=== PATIENT | female | born 1955 | race Caucasian/White ===

== ENCOUNTER → 2020-01-23 08:53 | Outpatient (BNVA) | payer MEDICARE, OTHER, SELFPAY | PROVIDERS: Family Provider Electrodiagnostic Medicine; PCP Family Medicine; Visit Provider Social Worker | DX: F33.0 Major depressive disorder, recurrent, mild (principal); F41.1 Generalized anxiety disorder | CPT/HCPCS: 90834 ==

== ENCOUNTER → 2020-02-12 12:49 | Outpatient (BNVA) | payer MEDICARE, OTHER, SELFPAY | PROVIDERS: Family Provider Electrodiagnostic Medicine; PCP Family Medicine; Visit Provider Psychiatry & Neurology Psychiatry | DX: F33.0 Major depressive disorder, recurrent, mild (principal); F41.1 Generalized anxiety disorder | CPT/HCPCS: 99213 ==

== ENCOUNTER → 2020-02-13 15:51 | Outpatient (BNVA) | payer MEDICARE, OTHER, SELFPAY | PROVIDERS: Family Provider Electrodiagnostic Medicine; PCP Family Medicine; Visit Provider Social Worker | DX: F41.1 Generalized anxiety disorder (principal); F33.0 Major depressive disorder, recurrent, mild | CPT/HCPCS: 90834 ==

== ENCOUNTER → 2020-04-02 08:29 | Outpatient (BNVA) | payer MEDICARE, OTHER, SELFPAY | PROVIDERS: Family Provider Electrodiagnostic Medicine; PCP Family Medicine; Visit Provider Social Worker | DX: F41.1 Generalized anxiety disorder (principal); F33.0 Major depressive disorder, recurrent, mild | CPT/HCPCS: 90834 ==

== ENCOUNTER → 2020-04-15 08:33 | Outpatient (BNVA) | payer MEDICARE, OTHER, SELFPAY | PROVIDERS: Family Provider Electrodiagnostic Medicine; PCP Family Medicine; Visit Provider Psychiatry & Neurology Psychiatry | DX: F41.1 Generalized anxiety disorder (principal); F33.0 Major depressive disorder, recurrent, mild | CPT/HCPCS: 99213 ==

== ENCOUNTER → 2020-04-23 08:37 | Outpatient (BNVA) | payer MEDICARE, OTHER, SELFPAY | PROVIDERS: Family Provider Electrodiagnostic Medicine; PCP Family Medicine; Visit Provider Social Worker | DX: F41.1 Generalized anxiety disorder (principal); F33.0 Major depressive disorder, recurrent, mild | CPT/HCPCS: 90834 ==

== ENCOUNTER → 2020-07-17 08:54 | Outpatient (BNVA) | payer MEDICARE, OTHER, SELFPAY | PROVIDERS: Family Provider Electrodiagnostic Medicine; PCP Family Medicine; Visit Provider Psychiatry & Neurology Psychiatry | DX: F41.1 Generalized anxiety disorder (principal); F33.0 Major depressive disorder, recurrent, mild | CPT/HCPCS: 99213 ==

== ENCOUNTER → 2020-09-17 08:45 | Outpatient (BNVA) | payer MEDICARE, OTHER, SELFPAY | PROVIDERS: Family Provider Electrodiagnostic Medicine; PCP Family Medicine; Visit Provider Psychiatry & Neurology Psychiatry | DX: F41.1 Generalized anxiety disorder (principal); F33.0 Major depressive disorder, recurrent, mild | CPT/HCPCS: 99213 ==

== ENCOUNTER → 2020-11-20 08:28 | Outpatient (BNVA) | payer MEDICARE, OTHER, SELFPAY | PROVIDERS: Family Provider Electrodiagnostic Medicine; PCP Family Medicine; Visit Provider Psychiatry & Neurology Psychiatry | DX: F41.1 Generalized anxiety disorder (principal); F33.0 Major depressive disorder, recurrent, mild | CPT/HCPCS: 99213 ==

== ENCOUNTER → 2020-12-13 17:07 | Outpatient (BNVA) | payer MEDICARE, OTHER, SELFPAY | PROVIDERS: Family Provider Electrodiagnostic Medicine; PCP Family Medicine; Visit Provider Emergency Medicine | DX: Z20.828 Contact with and (suspected) exposure to other viral communicable diseases (principal) | CPT/HCPCS: 87635 ==

== ENCOUNTER 2021-01-12 14:26 | Outpatient (CLI) | payer MEDICARE, OTHER, SELFPAY ==
--- NOTE | 2021-01-12 14:34 | MM_ITS ---
WS: [id number] BILATERAL SCREENING DIGITAL MAMMOGRAM WITH CAD HISTORY: SCREENING COMPARISON: 01/16/2013 Bilateral CC and MLO views submitted. Computer aided detection analyzed. Breast composition: The breasts are heterogeneously dense, which may obscure small masses. No suspici ous masses, microcalcifications or architectural distortion. Biopsy clip in the central RIGHT breast and bilateral benign calcifications. MM/[place] [id number] IMPRESSION: BI-RADS: 2-Benign FOLLOW UP: 1 Year Follow-up
== END 2021-01-12 14:27 | disposition home or self-care (01) ==
LOC: RADSHAW 14:30
PROVIDERS: PCP Electrodiagnostic Medicine; Visit Provider Electrodiagnostic Medicine
DX: Z12.31 Encounter for screening mammogram for malignant neoplasm of breast (principal)
CPT/HCPCS: 77067

== ENCOUNTER 2021-01-16 11:05 | Outpatient (CLI) | payer MEDICARE, OTHER, SELFPAY ==
--- NOTE | 2021-01-16 11:10 | XR_ITS ---
WS: [id number] SCREENING DEXA SCAN [place] CLINICAL INFORMATION: POSTMENOPAUSAL STATUS COMPARISON: None. FINDINGS: The L1-L4 bone mineral density measures 1.14. This corresponds to a T score score of -0.2 and Z score of 1.5. Left femoral neck bone mineral density measures 0.743 g/cm2. This corresponds to a T score of -2.1 an d Z score of -0.8. Right femoral neck bone mineral density measures 0.779 g/cm2. This corresponds to a T score -1.8of an d Z score of -0.5. Mean femoral neck bone mineral density measures 0.761 g/cm2. This corresponds to a T score of -2.0 an d Z score of -0.6. XR/XR DEXA axial skeleton* [id number] IMPRESSION: Normal bone mineralization lumbar spine. Osteopenia in the femoral necks. Patient's FRAX calculated 10 year probability for major osteoporotic fracture i s 37.0 % and osteoporotic hip fracture is 9.0%.
== END 2021-01-16 11:06 | disposition home or self-care (01) ==
LOC: RADWPI 11:09
PROVIDERS: PCP Electrodiagnostic Medicine; Visit Provider Electrodiagnostic Medicine
DX: Z78.0 Asymptomatic menopausal state (principal)
CPT/HCPCS: 77080

== ENCOUNTER → 2021-02-10 09:13 | Outpatient (BNVA) | payer MEDICARE, OTHER, SELFPAY | PROVIDERS: Family Provider Electrodiagnostic Medicine; PCP Family Medicine; Visit Provider Psychiatry & Neurology Psychiatry | DX: F41.1 Generalized anxiety disorder (principal); F33.0 Major depressive disorder, recurrent, mild | CPT/HCPCS: 99213 ==

== ENCOUNTER 2021-02-19 12:49 | Outpatient (CLI) | payer MEDICARE, OTHER, SELFPAY ==
--- NOTE | 2021-02-19 13:01 | XR_ITS ---
WS: [id number] Left shoulder, 2 views, 02/19/2021 Clinical Data: LEFT ROTATOR CUFF SYNDROME/CHRONIC L SHOULDER PAIN Comparison: None. Findings: The patient has had internal fixation of a fracture of the left humeral head and neck. There is a lat eral plate with multiple orthopedic screws. The fracture has healed. The AC joint is normal. The adjacent left clavicle, left scapula and left ribs are unremarkable. The soft tissues are normal. XR/XR shoulder LT min 2V* [id number] Impression: Internal fixation of fracture of left humeral neck and head.
== END 2021-02-19 12:50 | disposition home or self-care (01) ==
PROVIDERS: PCP Family Medicine; Visit Provider Electrodiagnostic Medicine
DX: M25.512 Pain in left shoulder (principal); M75.102 Unspecified rotator cuff tear or rupture of left shoulder, not specified as traumatic; G89.29 Other chronic pain
CPT/HCPCS: 73030

== ENCOUNTER → 2021-06-09 10:54 | Outpatient (BNVA) | payer MEDICARE, OTHER, SELFPAY | PROVIDERS: PCP Family Medicine; Visit Provider Psychiatry & Neurology Psychiatry | DX: F41.1 Generalized anxiety disorder (principal); F33.0 Major depressive disorder, recurrent, mild | CPT/HCPCS: 99213 ==

== ENCOUNTER → 2021-09-08 12:24 | Outpatient (BNVA) | payer MEDICARE, OTHER, SELFPAY | PROVIDERS: PCP Family Medicine; Visit Provider Psychiatry & Neurology Psychiatry | DX: F41.1 Generalized anxiety disorder (principal); F33.0 Major depressive disorder, recurrent, mild | CPT/HCPCS: 99214 ==

== ENCOUNTER → 2021-10-12 12:20 | Outpatient (BNVA) | payer MEDICARE, OTHER, SELFPAY | PROVIDERS: PCP Family Medicine; Visit Provider Psychiatry & Neurology Psychiatry | DX: F33.0 Major depressive disorder, recurrent, mild (principal); F41.1 Generalized anxiety disorder | CPT/HCPCS: 99214 ==

== ENCOUNTER 2021-12-15 14:09 | Outpatient (RCR) | payer MEDICARE, OTHER, SELFPAY | END 2022-01-11 23:59 | disposition home or self-care (01) | LOC: SPT 14:09 | PROVIDERS: PCP Family Medicine; Referring Provider Orthopaedic Surgery; Visit Provider Orthopaedic Surgery | DX: Z47.1 Aftercare following joint replacement surgery (principal); Z96.612 Presence of left artificial shoulder joint | CPT/HCPCS: 97110; 97162 ==

== ENCOUNTER → 2021-12-30 13:21 | Outpatient (BNVA) | payer MEDICARE, OTHER, SELFPAY | PROVIDERS: PCP Family Medicine; Visit Provider Psychiatry & Neurology Psychiatry | DX: F33.0 Major depressive disorder, recurrent, mild (principal); F41.1 Generalized anxiety disorder | CPT/HCPCS: 99214 ==

== ENCOUNTER 2022-01-12 06:00 | Outpatient (RCR) | payer MEDICARE, OTHER, SELFPAY | END 2022-02-11 23:59 | disposition home or self-care (01) | LOC: SPT 06:00 | PROVIDERS: PCP Family Medicine; Referring Provider Orthopaedic Surgery; Visit Provider Orthopaedic Surgery | DX: Z47.1 Aftercare following joint replacement surgery (principal); Z96.612 Presence of left artificial shoulder joint | CPT/HCPCS: 97110 ==

== ENCOUNTER → 2022-02-05 11:20 | Outpatient (BNVA) | payer MEDICARE, OTHER, SELFPAY | PROVIDERS: PCP Family Medicine; Visit Provider Psychiatry & Neurology Psychiatry | DX: F33.0 Major depressive disorder, recurrent, mild (principal); F41.1 Generalized anxiety disorder | CPT/HCPCS: 99214 ==

== ENCOUNTER 2022-02-11 15:20 | Outpatient (CLI) | payer MEDICARE, OTHER, SELFPAY ==
--- NOTE | 2022-02-11 15:26 | MM_ITS ---
WS: [id number] VIEWS: MLO and CC views both breasts. 3D digital tomosynthesis is also included in this exam. Comparison made with prior exam of 01/12/2021. Findings: There was no sign of mass, architectural distortion or suspicious calcification in either breast. Sc attered fibroglandular densities MM/[place] [id number] Impression: BI-RADS: 2-Benign FOLLOW-UP: 1 Year Follow-up This mammogram was also analyzed by the Computer Aided Detection System R2 Imag e [employer].
== END 2022-02-11 15:21 | disposition home or self-care (01) ==
LOC: RAD 15:24
PROVIDERS: PCP Electrodiagnostic Medicine; Visit Provider Electrodiagnostic Medicine
DX: Z12.31 Encounter for screening mammogram for malignant neoplasm of breast (principal)
CPT/HCPCS: 77063; 77067

== ENCOUNTER 2022-02-12 06:00 | Outpatient (RCR) | payer MEDICARE, OTHER, SELFPAY | END 2022-02-18 23:59 | disposition home or self-care (01) | LOC: SPT 06:00 | PROVIDERS: PCP Electrodiagnostic Medicine; Referring Provider Orthopaedic Surgery; Visit Provider Orthopaedic Surgery | DX: Z47.1 Aftercare following joint replacement surgery (principal); Z96.612 Presence of left artificial shoulder joint | CPT/HCPCS: 97110 ==

== ENCOUNTER → 2022-03-19 10:50 | Outpatient (BNVA) | payer MEDICARE, OTHER, SELFPAY | PROVIDERS: PCP Electrodiagnostic Medicine; Visit Provider Psychiatry & Neurology Psychiatry | DX: F33.0 Major depressive disorder, recurrent, mild (principal); F41.1 Generalized anxiety disorder | CPT/HCPCS: 99214 ==

== ENCOUNTER → 2022-04-27 13:14 | Outpatient (BNVA) | payer MEDICARE, OTHER, SELFPAY | PROVIDERS: PCP Electrodiagnostic Medicine; Visit Provider Internal Medicine Cardiovascular Disease | DX: R42 Dizziness and giddiness (principal); I49.1 Atrial premature depolarization; I49.3 Ventricular premature depolarization | CPT/HCPCS: 93005; 93242; 99203; 99204 ==

== ENCOUNTER → 2022-05-13 13:08 | Outpatient (BNVA) | payer MEDICARE, OTHER, SELFPAY | PROVIDERS: PCP Electrodiagnostic Medicine; Visit Provider Social Worker | DX: F90.0 Attention-deficit hyperactivity disorder, predominantly inattentive type (principal); F41.1 Generalized anxiety disorder | CPT/HCPCS: 90791 ==

== ENCOUNTER 2022-06-04 09:08 | Outpatient (CLI) | payer MEDICARE, OTHER, SELFPAY ==
--- NOTE | 2022-06-04 09:15 | USCV_ITS ---
Petrona Esquivel Age: 67 Gender: F : 1955 Exam Date: 06/04/2022 09:25 Ordering Phys: Erlinda Willett MD ([email or web address]) Technologist: [email or web address] Exam Location: [facility] – [place] Indication: SANCHES BP: 122 / 62 HR: 60 Rhythm: Sinus Technical Quality: adequate MEASUREMENTS (Male / Female) Normal Values 2D ECHO LV Diastolic Diameter PLAX 4.1 cm 4.2 - 5.9 / 3.9 - 5.3 cm LV Systolic Diameter PLAX 2.8 cm IVS Diastolic Thickness 1.1 cm 0.6 - 1.0 / 0.6 - 0.9 cm IVS Systolic Thickness 1.2 cm LVPW Diastolic Thickness 1.1 cm 0.6 - 1.0 / 0.6 - 0.9 cm LVPW Systolic Thickness 1.3 cm LVOT Diameter 2.0 cm LV Ejection Fraction 2D Teich 61.0 % LV Ejection Fraction MOD 2C 69.3 % LV Ejection Fraction 2C AL 68.9 % LA Diameter 2.3 cm LA Width 2.9 cm LA Height 4.5 cm Aorta at Sinotubular Diameter 2.6 cm M-MODE MV E Point Septal Separation 0.4 cm DOPPLER AV Peak Velocity 146.0 cm/s LVOT Peak Velocity 104.0 cm/s AV Area Cont Eq vti 2.2 cm squared AV Area Cont Eq pk 2.2 cm squared MV Area PHT 3.6 cm squared Mitral E to A Ratio 0.9 MV E' Velocity 52.5 cm/s Mitral E to MV E' Ratio 9.2 Mitral E to LV E' Lateral Ratio 9.6 Mitral E to LV E' Septal Ratio 8.8 TR Peak Velocity 199.0 cm/s TR Peak Gradient 15.8 mmHg Right Atrial Pressure 8.0 mmHg Pulmonary Artery Systolic Pressu 23.8 mmHg PV Peak Velocity 93.0 cm/s FINDINGS Left Ventricle Normal left ventricular size and systolic function, EF 66 %. Mild left ventricular hypertrophy. Grade I/IV diastolic dysfunction (abnormal relaxation filling pattern), normal to mildly elevated filling pressures. Right Ventricle The right ventricle is normal in size and function. Right Atrium The right atrium is normal in size. Left Atrium The left atrium is normal in size. Mitral Valve Mild mitral valve regurgitation. Aortic Valve Thickened aortic valve. Tricuspid Valve Trace tricuspid valve regurgitation. Pulmonic Valve Pulmonic valve not well visualized. Pericardium Normal pericardium without effusion. Aorta Normal ascending aorta dimension. IVC Normal inferior vena cava. CONCLUSIONS Normal left ventricular size and systolic function, EF 66 %. Mild left ventricular hypertrophy. Grade I/IV diastolic dysfunction (abnormal relaxation filling pattern), normal to mildly elevated filling pressures. Mild mitral valve regurgitation. Thickened aortic valve. Trace tricuspid valve regurgitation. There is no pericardial effusion. There are no intracardiac masses. No similar previous studies are available for comparison Dr Rachel Cornelius MD [facility] (Electronically Signed) Final Date: 05 June 2022 01:10 S
== END 2022-06-04 09:09 | disposition home or self-care (01) ==
LOC: RAD 09:09
PROVIDERS: PCP Electrodiagnostic Medicine; Visit Provider Internal Medicine Cardiovascular Disease
DX: R06.09 Other forms of dyspnea (principal); I08.3 Combined rheumatic disorders of mitral, aortic and tricuspid valves
CPT/HCPCS: 93306

== ENCOUNTER → 2022-07-14 08:48 | Outpatient (BNVA) | payer MEDICARE, OTHER, SELFPAY | PROVIDERS: PCP Electrodiagnostic Medicine; Visit Provider Otolaryngology | DX: I95.1 Orthostatic hypotension (principal); F41.1 Generalized anxiety disorder | CPT/HCPCS: 99213 ==

== ENCOUNTER → 2022-07-27 16:08 | Outpatient (BNVA) | payer MEDICARE, OTHER, SELFPAY | PROVIDERS: PCP Electrodiagnostic Medicine; Visit Provider Orthopaedic Surgery | DX: R42 Dizziness and giddiness (principal); F33.0 Major depressive disorder, recurrent, mild; I10 Essential (primary) hypertension; E78.2 Mixed hyperlipidemia; F41.1 Generalized anxiety disorder; M47.22 Other spondylosis with radiculopathy, cervical region | CPT/HCPCS: 72050; 99203; 99204; 99214 ==

== ENCOUNTER → 2022-08-04 11:04 | Outpatient (BNVA) | payer MEDICARE, OTHER, SELFPAY | PROVIDERS: PCP Family Medicine Adult Medicine; Visit Provider Specialist | DX: R42 Dizziness and giddiness (principal); F41.1 Generalized anxiety disorder; G43.711 Chronic migraine without aura, intractable, with status migrainosus; M47.892 Other spondylosis, cervical region | CPT/HCPCS: 99204 ==

== ENCOUNTER 2022-08-05 14:17 | Outpatient (CLI) | payer MEDICARE, OTHER, SELFPAY ==
--- NOTE | 2022-08-05 14:30 | MR_ITS ---
WS: [id number] MRI CERVICAL SPINE NONCONTRAST HISTORY: pain COMPARISON: Cervical spine radiographs 07/27/2022 Technique: Multiplanar, multisequence noncontrast imaging of the cervical spine. 2 mm anterolisthesis of C5. No acute fracture. Disc spaces are mildly narrowed throughout. Signal within the cervical cord is normal. Visualized posterior fossa is unremarkable. Craniocervical junction, C1 and C2 relationship, odontoid process and soft tissues are normal. C2-C3: Normal. C3-C4: Mild osteophytic ridging. Slightly greater osteophytosis proximal RIGHT foramen. There is mild bilateral foraminal stenosis. C4-C5: Normal. C5-C6: Mild diffuse osteophytic ridging with slight disc bulging. Osteophytes contribute to mild fora henry narrowing. Minimal encroachment upon the thecal sac but no stenosis. C6-C7: Mild osteophytosis with a central broad-based disc bulge. There is minimal disc bulging centra lly. No contact on the cord. C7-T1: Mild disc bulge. No stenosis. Paraspinal soft tissue are normal. MR/MR cervical spin wo con* [id number] IMPRESSION: 1. No high-grade central stenosis. 2. Multilevel mild degenerative disc disease and osteophytosis. 3. Mild bilateral foraminal stenosis at C3-4 and C5-6 predominantly due to ost eophyte disease. 4. Very minimal central disc bulging at C6-7. No significant stenosis.
== END 2022-08-05 14:18 | disposition home or self-care (01) ==
LOC: RAD 14:17
PROVIDERS: PCP Family Medicine Adult Medicine; Visit Provider Orthopaedic Surgery
DX: M50.30 Other cervical disc degeneration, unspecified cervical region (principal); M48.02 Spinal stenosis, cervical region; M50.223 Other cervical disc displacement at C6-C7 level; M25.78 Osteophyte, vertebrae
CPT/HCPCS: 72141

== ENCOUNTER → 2022-08-10 14:00 | Outpatient (BNVA) | payer MEDICARE, OTHER, SELFPAY | PROVIDERS: PCP Family Medicine Adult Medicine; Visit Provider Physician Assistant | DX: G43.711 Chronic migraine without aura, intractable, with status migrainosus (principal); M47.812 Spondylosis without myelopathy or radiculopathy, cervical region | CPT/HCPCS: 99212; 99213 ==

== ENCOUNTER → 2022-08-31 08:38 | Outpatient (BNVA) | payer MEDICARE, OTHER, SELFPAY | PROVIDERS: PCP Family Medicine Adult Medicine; Visit Provider Anesthesiology Pain Medicine | DX: M47.22 Other spondylosis with radiculopathy, cervical region (principal); G43.711 Chronic migraine without aura, intractable, with status migrainosus; F33.0 Major depressive disorder, recurrent, mild; F41.1 Generalized anxiety disorder; M79.601 Pain in right arm; M79.602 Pain in left arm | CPT/HCPCS: 99204 ==

== ENCOUNTER 2022-09-20 06:00 | Outpatient (RCR) | payer MEDICARE, OTHER, SELFPAY | END 2022-10-13 23:59 | disposition home or self-care (01) | LOC: SPT 06:00 | PROVIDERS: PCP Family Medicine Adult Medicine; Visit Provider Anesthesiology Pain Medicine | DX: M47.22 Other spondylosis with radiculopathy, cervical region (principal) | CPT/HCPCS: 97110; 97161 ==

== ENCOUNTER → 2022-10-19 15:05 | Outpatient (BNVA) | payer MEDICARE, OTHER, SELFPAY | PROVIDERS: PCP Family Medicine Adult Medicine; Visit Provider Specialist | DX: G43.711 Chronic migraine without aura, intractable, with status migrainosus (principal); R42 Dizziness and giddiness | CPT/HCPCS: 99214 ==

== ENCOUNTER → 2022-11-25 12:07 | Outpatient (BNVA) | payer MEDICARE, OTHER, SELFPAY | PROVIDERS: PCP Family Medicine Adult Medicine; Visit Provider Family Medicine Adult Medicine | DX: F33.0 Major depressive disorder, recurrent, mild (principal); E78.2 Mixed hyperlipidemia; R42 Dizziness and giddiness; I10 Essential (primary) hypertension | CPT/HCPCS: 80053; 80061; 84443; 85025 ==

== ENCOUNTER → 2022-12-02 14:30 | Outpatient (BNVA) | payer MEDICARE, OTHER, SELFPAY | PROVIDERS: PCP Family Medicine Adult Medicine; Visit Provider Physician Assistant | DX: M43.17 Spondylolisthesis, lumbosacral region (principal); M51.36 Other intervertebral disc degeneration, lumbar region | CPT/HCPCS: 72110; 99203; 99214 ==

== ENCOUNTER → 2022-12-03 10:59 | Outpatient (BNVA) | payer MEDICARE, OTHER, SELFPAY | PROVIDERS: PCP Family Medicine Adult Medicine; Visit Provider Nurse Practitioner Family | DX: I25.10 Atherosclerotic heart disease of native coronary artery without angina pectoris (principal); I10 Essential (primary) hypertension | CPT/HCPCS: 99213 ==

== ENCOUNTER 2023-01-12 16:02 | Outpatient (CLI) | payer MEDICARE, OTHER, SELFPAY ==
--- NOTE | 2023-01-12 16:00 | MR_ITS ---
WS: [id number] MRI LUMBAR SPINE NONCONTRAST TECHNIQUE: Sagittal T1, T2 and STIR imaging. Axial T1 and T2 imaging. CLINICAL INFORMATION: pain COMPARISON: None. FINDINGS: Mild lumbar curve. No acute compression. Slight anterolisthesis L4 on L5 and L5-S1. Anterolisthesis L 5 on S1 measuring 3.5 mm. Intraosseous hemangioma L5 vertebral body and S1. Hemangioma T6 vertebral b misael on the clinical education manager imaging. Disc space narrowing worse at L4-L5 and L5-S1. No acute compression fractur es. No high-grade central canal stenosis. L1-L2: Normal. L2-L3: Slight retrolisthesis L2 on L3. Mild annular bulging with narrowing of the LEFT greater than R IGHT subarticular recess. Small LEFT foraminal protrusion with mild LEFT foraminal narrowing. Impinge ment on the exiting LEFT L2 nerve root. RIGHT foramen is patent. Mild facet arthropathy. L3-L4: Mild annular bulging with slight effacement of the ventral thecal sac. Moderate facet arthropa thy. Mild LEFT greater than RIGHT foraminal narrowing. L4-L5: Slight anterolisthesis L4 on L5. Mild disc bulging with impingement on the traversing RIGHT L5 nerve root in the subarticular recess. Moderate facet arthropathy. Mild LEFT greater than RIGHT fora henry narrowing. Mild central canal stenosis. L5-S1: Grade 1 anterolisthesis. Intraosseous hemangioma. Mild disc bulging with osteophytic ridging. Slight effacement of ventral thecal sac. Slight impingement traversing RIGHT greater than LEFT S1 ner ve roots. Visualized pelvic bony structures: Normal. Paravertebral soft tissues: Normal. MR/MR lumbar spine wo con* [id number] IMPRESSION: 1. Mild lumbar curve. No acute compression. Slight anterolisthesis L4 on L5 an d L5 on S1. Bilateral spondylolysis L5-S1. 2. Benign intraosseous hemangioma L5 vertebral body. 3. Annular bulging L4-L5 with tiny RIGHT subarticular protrusion with a tiny a nnular fissure. Impingement traversing RIGHT L5 nerve root. Mild bilateral L4-L 5 foraminal narrowing. 4. Small LEFT foraminal protrusion L3-L4 slightly contacts the exiting LEFT L3 nerve root. 5. Narrowing of the LEFT L2-L3 subarticular recess with small LEFT foraminal p rotrusion. Slight contact exiting LEFT L2 nerve root. 6. Moderate facet arthropathy L3-L4 and L4-L5.
== END 2023-01-12 16:03 | disposition home or self-care (01) ==
LOC: RAD 16:06
PROVIDERS: PCP Family Medicine Adult Medicine; Visit Provider Physician Assistant
DX: M43.07 Spondylolysis, lumbosacral region (principal); M51.26 Other intervertebral disc displacement, lumbar region; M12.9 Arthropathy, unspecified
CPT/HCPCS: 72148

== ENCOUNTER → 2023-01-19 14:52 | Outpatient (BNVA) | payer MEDICARE, OTHER, SELFPAY | PROVIDERS: PCP Family Medicine Adult Medicine; Visit Provider Specialist | DX: R42 Dizziness and giddiness (principal); G43.809 Other migraine, not intractable, without status migrainosus; G43.711 Chronic migraine without aura, intractable, with status migrainosus; F41.1 Generalized anxiety disorder | CPT/HCPCS: 99214 ==

== ENCOUNTER → 2023-02-03 14:09 | Outpatient (BNVA) | payer MEDICARE, OTHER, SELFPAY | PROVIDERS: PCP Family Medicine Adult Medicine; Visit Provider Physician Assistant | DX: M51.36 Other intervertebral disc degeneration, lumbar region (principal); M48.061 Spinal stenosis, lumbar region without neurogenic claudication | CPT/HCPCS: 99213 ==

== ENCOUNTER 2023-03-09 06:00 | Outpatient (RCR) | payer MEDICARE, OTHER, SELFPAY | END 2023-03-13 23:59 | disposition home or self-care (01) | LOC: SPT 06:00 | PROVIDERS: Visit Provider Physician Assistant | DX: M54.50 Low back pain, unspecified (principal); M54.2 Cervicalgia | CPT/HCPCS: 97161 ==

== ENCOUNTER 2023-03-14 06:00 | Outpatient (RCR) | payer MEDICARE, OTHER, SELFPAY | END 2023-04-13 23:59 | disposition home or self-care (01) | LOC: SPT 06:00 | PROVIDERS: Visit Provider Physician Assistant | DX: M54.50 Low back pain, unspecified (principal); M54.2 Cervicalgia | CPT/HCPCS: 97110 ==

== ENCOUNTER 2023-04-14 06:00 | Outpatient (RCR) | payer MEDICARE, OTHER, SELFPAY | END 2023-05-13 23:59 | disposition home or self-care (01) | LOC: SPT 06:00 | PROVIDERS: Visit Provider Physician Assistant | DX: M54.50 Low back pain, unspecified (principal); M54.2 Cervicalgia | CPT/HCPCS: 97110 ==

== ENCOUNTER → 2023-05-03 08:56 | Outpatient (BNVA) | payer MEDICARE, OTHER, SELFPAY | PROVIDERS: PCP Family Medicine Adult Medicine; Visit Provider Specialist | DX: G43.711 Chronic migraine without aura, intractable, with status migrainosus (principal); M54.2 Cervicalgia; R42 Dizziness and giddiness; G43.809 Other migraine, not intractable, without status migrainosus; F41.1 Generalized anxiety disorder | CPT/HCPCS: 99214 ==

== ENCOUNTER → 2023-05-27 08:55 | Outpatient (BNVA) | payer MEDICARE, OTHER, SELFPAY | PROVIDERS: PCP Family Medicine Adult Medicine; Visit Provider Internal Medicine Cardiovascular Disease | DX: G43.711 Chronic migraine without aura, intractable, with status migrainosus (principal); F33.0 Major depressive disorder, recurrent, mild; I10 Essential (primary) hypertension; E78.2 Mixed hyperlipidemia | CPT/HCPCS: 99213 ==

== ENCOUNTER → 2023-08-22 13:58 | Outpatient (BNVA) | payer MEDICARE, OTHER, SELFPAY | PROVIDERS: PCP Family Medicine Adult Medicine; Visit Provider Internal Medicine Cardiovascular Disease | DX: R42 Dizziness and giddiness (principal); I10 Essential (primary) hypertension; E78.2 Mixed hyperlipidemia; F33.0 Major depressive disorder, recurrent, mild; F41.1 Generalized anxiety disorder | CPT/HCPCS: 99214 ==

== ENCOUNTER → 2023-08-23 10:30 | Outpatient (BNVA) | payer MEDICARE, OTHER, SELFPAY | PROVIDERS: PCP Family Medicine Adult Medicine; Visit Provider Family Medicine Adult Medicine | DX: I10 Essential (primary) hypertension (principal); I25.10 Atherosclerotic heart disease of native coronary artery without angina pectoris; R73.9 Hyperglycemia, unspecified | CPT/HCPCS: 80053; 80061; 83036; 85025 ==

== ENCOUNTER → 2023-10-04 09:35 | Outpatient (BNVA) | payer MEDICARE, OTHER, SELFPAY | PROVIDERS: PCP Family Medicine Adult Medicine; Visit Provider Specialist | DX: G43.809 Other migraine, not intractable, without status migrainosus (principal) | CPT/HCPCS: 99213 ==

== ENCOUNTER → 2024-04-03 14:39 | Outpatient (BNVA) | payer MEDICARE, OTHER, SELFPAY | PROVIDERS: PCP Family Medicine Adult Medicine; Visit Provider Internal Medicine Cardiovascular Disease | DX: R07.9 Chest pain, unspecified (principal); F33.0 Major depressive disorder, recurrent, mild; F41.1 Generalized anxiety disorder; E78.2 Mixed hyperlipidemia; I10 Essential (primary) hypertension; R42 Dizziness and giddiness; I25.119 Atherosclerotic heart disease of native coronary artery with unspecified angina pectoris | CPT/HCPCS: 99214 ==

== ENCOUNTER 2024-04-07 13:57 | Emergency (ER) | payer MEDICARE, OTHER, SELFPAY ==
[2024-04-07 14:02] VITALS: BP 126/75; PULSE 85; RESP 16; TEMP 36.6; O2SAT 98; BMI 24.7
--- NOTE | 2024-04-07 14:06 | ECG_ITS ---
[facility] Test Date: 2024-04-07 Pat Name: Petrona Esquivel Department: Room: Gender: Female Head Of Partner Development: : 1955 Requested By: Servando Warrne Order Number: [id number] William MD: Rachel Cornelius M.D. Measurements Intervals [place] Rate: 82 P: 78 NV: 173 QRS: 64 QRSD: 86 T: 67 QT: 349 QTc: 410 Interpretive Statements SINUS RHYTHM MINIMAL ST DEPRESSION [0.025+ mV ST DEPRESSION] No previous ECG available for comparison Electronically Signed On 04-07-2024 20:23:22 CDT by Rachel Cornelius M.D. [id number]
[2024-04-07 14:34] VITALS: BP 130/67; PULSE 75; RESP 16; O2SAT 98
--- NOTE | 2024-04-07 14:34 | CTR_ITS ---
PROCEDURE INFORMATION: Exam: CT Head Without Contrast Exam date and time: 04/07/2024 2:41 PM Age: 69 years old Clinical indication: Dizziness TECHNIQUE: Imaging protocol: Computed tomography of the head without contrast. Radiation optimization: All CT scans at this facility use at least one of these dose optimization techniques: automated exposure control; mA and/or kV adjustment per patient size (includes targeted exams where dose is matched to clinical indication); or iterative reconstruction. COMPARISON: MR cervical spin wo con* [id number] 08/05/2022 3:02 PM RADIATION DOSE METRICS: Total DLP (mGy-cm): 1064.68 FINDINGS: Brain: Mild diffuse parenchymal volume loss. Mild form of chronic ischemic small vessel disease. No recent infarct, intracranial bleed or mass effect. Cerebral ventricles: There is dilatation of the lateral ventricles, out of proportion to the sulci, suggestive of normal pressure hydrocephalus. Pituitary gland and sella: Partially empty sella. Paranasal sinuses: Frothy secretions of bilateral sphenoid sinuses. Mastoid air cells: Visualized mastoid air cells are well aerated. Bones: Unremarkable. No acute fracture. Soft tissues: Unremarkable. CT/CT head wo con* [id number] IMPRESSION: 1. No large territorial infarct or intracranial bleed. 2. Findings suspicious for normal pressure hydrocephalus.
--- NOTE | 2024-04-07 14:35 | XRR_ITS ---
PROCEDURE INFORMATION: Exam: XR Chest Exam date and time: 04/07/2024 2:43 PM Age: 69 years old Clinical indication: Other: Dizziness TECHNIQUE: Imaging protocol: Radiologic exam of the chest. Views: 1 view. COMPARISON: MR cervical spin wo con* [id number] 08/05/2022 3:02 PM FINDINGS: Lungs: Unremarkable. No consolidation. Pleural spaces: Unremarkable. No pleural effusion. No pneumothorax. Heart/Mediastinum: Unremarkable. No cardiomegaly. Vasculature: Aortic arch calcifications. Bones/joints: Reverse total left shoulder arthroplasty. XR/XR chest 1V portable [id number] IMPRESSION: No acute cardiopulmonary process.
--- NOTE | 2024-04-07 14:36 | ED_ITS ---
Documented by User: VANESSA Sagastume 04/07/24 17:16 HPI - Dizziness 2 General: Chief Complaint: Dizziness Stated Complaint: stroke like symtoms sent by Time Seen by Provider: 04/07/24 14:08 Source: patient Mode of arrival: ambulatory Limitations: no limitations History of Present Illness: HPI Narrative: Patient is a 69-year-old female who presents to the emergency department due to acute on chronic dizziness today. She initially went to the urgent care but was sent to the emergency department for further evaluation and stroke rule out. Per patient, she has dealt with symptoms of dizziness for 40+ years, and has had multiple workups done. She notes that she had an MRI performed by a specialist in [place] recently, however has not received results of this. She notes that she sees Dr. Delgado, neurologist, for longstanding history of migraines as well as her vestibular dysfunction. She is set to begin vestibular rehab on Tuesday, though got concerned today while she was out in the garden and felt off balance and that she was going to fall. She however, did not fall nor did she hit her head. She is not reporting any unilateral deficits such as numbness, weakness, or tingling. She is denying any visual changes, but comments that sometimes she catches herself mumbling through her words. There is no family in the room at this time to confirm or deny if she is at baseline mentation, though patient is alert and oriented x 3 and communicates clearly with no obvious neurological deficit noted at this time. She is not complaining of any chest pain, respiratory complaints, diaphoresis, headaches, or other symptoms at this time. She is not on a blood thinner but states she does take a baby aspirin. Has not had any recent changes in medication. She does note that she has a history of orthostatic hypotension, and specifically her dizziness today was exacerbated by standing. Currently at this time she is not feeling dizzy. She does note adequate water intake. No history of anemia. She also denies history of heart attacks or previous strokes. She states that she does have history of leaky valves and aortic stenosis. She sees Dr. Cornelius for these cardiac complaints, does not know when last echocardiogram or cardiac cath was performed. MD elicited complaint: dizziness Onset (ago): year(s) Timing: intermittent Severity: moderate Description: lightheadedness, off-balance and difficulty walking Context: change in body position History of similar symptoms: Yes Exacerbating factors: change in body position Relieving factors: rest Associated symptoms: Denies chest pain, chills, headache(s), nausea, palpitations or vomiting Associated neuro symptoms: Deny numbness in extremities Stroke scale total: 0 Review of Systems 2 General: Reports: 10 or more systems reviewed and unremarkable except in HPI and below Const: Denies: fever(s), chills or fatigue Eyes: Denies: change in vision ENMT: Denies: throat pain, ear or mastoid pain or nasal discharge Card: Denies: chest pain, palpitations, swelling of feet/ankles or lightheadedness Resp: Denies: dyspnea, productive cough or wheezing GI: Denies: abdominal pain, nausea, vomiting, diarrhea or constipation : Denies: flank pain, difficulty voiding, dysuria or urinary frequency Musc: Denies: neck pain, back pain or joint pain Skin/Breast: Denies: rash Neuro: Reports: difficulty walking, dizziness and Slurred speech present; Denies: headache(s), numbness in extremities or weakness in extremities PFSH ED 2 PFSH: Medical History (Updated 04/15/24 @ 00:01 by CLINT Almendarez) Allergic rhinitis due to allergen Reactive airway disease without asthma Pre-diabetes HgbA1C 5.8 08/23/2023 Hx of cataract left eye CAD (coronary artery disease) mild to moderate disease by coronary CTA with negative CT FFR [facility] Essential hypertension Mixed dyslipidemia Postural hypotension Psychiatric care Generalized anxiety disorder Major depressive disorder, recurrent, mild Surgical History (Updated 04/11/24 @ 17:36 by Nikolay Johnson MD) S/P shoulder replacement Family History Father FH: carotid endarterectomy Hypertension Carotid artery stenosis Mother Headache Hypertension Brother Myocardial infarction Hypertension Grandfather Stroke Family/Other Psychiatric diagnosis Social History Smoking and tobacco/nicotine status: never used tobacco/nicotine Quit status (tobacco/nicotine): has quit using Year quit tobacco: 1979 Second hand smoke exposure: Yes Alcohol intake: current Alcohol intake frequency: holidays/special occasions only Alcohol type: beer and wine Substance/Drug Use: never Current gender identity: Female Physical Exam 2 Const: COMMON NORMALS: no acute distress, patient oriented x3 and no limitations GENERAL APPEARANCE: cooperative, comfortable and well developed ORIENTATION/CONSCIOUSNESS: Yes awake, Yes oriented to person, Yes oriented to place and Yes oriented to time HENMT: COMMON NORMALS: normocephalic, atraumatic and hearing grossly normal bilaterally HEAD & SCALP: normocephalic and atraumatic Eye: COMMON NORMALS: Equal, round and reactive pupils present, EOMs intact bilaterally and conjunctivae normal CONJUNCTIVA: Yes conjunctivae normal P UPIL: Yes Equal, round and reactive pupils present Neck/C-Spine: COMMON NORMALS: full ROM, supple and no JVD Resp: COMMON NORMALS: normal respiratory effort, No retractions, No use of accessory muscles and clear to auscultation bilaterally AUSCULTATION: clear to auscultation bilaterally Cardio: COMMON NORMALS: no JVD, regular rate, regular rhythm, No clicks present (Cardio), No murmurs present (Cardio) and No rub (Cardio) RATE: r egular rate RHYTHM: regular rhythm GI: COMMON NORMALS: Normal to inspection, nondistended, normoactive bowel sounds present, Soft to palpation and non-tender AUSCULTATION: Yes normoactive bowel sounds PALPATION: Yes Soft to palpation RECTAL EXAM: d eferred Extremity: COMMON NORMALS: normal to inspection, full ROM and capillary refill normal Neuro: COMMON NORMALS: patient oriented x3, CN's II-XII intact bilaterally, moves all extremities, no focal motor deficits and no sensory deficits noted SENSORIUM/ORIENTATION: Yes oriented to person, Yes oriented to place and Yes oriented to time COORDINATION/BALANCE: nqvjfv-wa-[id number] test normal and qsez-nu-efrc test normal SPEECH: speech normal GAIT: Yes Normal gait present MOTOR EXAM: 5/5 motor strength present throughout, Pronator motor function not present and no tremor noted COORDINATION: tfavnl-lo-hjlo test normal and jywg-kz-[id number] test normal Psych: COMMON NORMALS: mental status grossly normal and Normal thought process present THOUGHT PROCESS: Normal thought process present Skin: COMMON NORMALS: no rashes or lesions noted GENERAL SKIN EXAM: no rashes or lesions noted Course 2 Vital Signs: Vital signs: Vital Signs Temperature 98 F 04/07/24 14:02 Pulse Rate 77 04/07/24 16:54 Respiratory Rate 16 04/07/24 16:54 Blood Pressure 130/72 04/07/24 16:54 Pulse Oximetry 98 04/07/24 16:54 Oxygen Delivery Me thod Room Air 04/07/24 16:00 MDM - Dizziness Medical Decision Making Patient referred over to the ED from urgent care due to dizziness, acute on chronic. States she has received neurological workups in the past, and is set to do vestibular rehab this week. Her vitals on arrival unremarkable, condition has remained stable throughout the ED course. Her neurological exam was completely normal with an NIH of 0. Basic blood work unremarkable. Urinalysis did reveal signs of a urinary tract infection. Chest x-ray normal. Head CT did not identify any intracranial bleeds, though commented on findings for a normal pressure hydrocephalus. No recent previous CTs to compare to, though an MRI from 2005 shows evidence of the same. I will refer patient back to Dr. Delgado, as she has seen her before, for reevaluation of this and further workup as needed. In the meantime I will treat for a urinary tract infection, and encourage plenty of fluids. She is set to start vestibular rehab on Tuesday of this week, will continue that plan. My suspicion for any other intracranial pathology very low at this point, however did provide strict return precautions that would warrant reevaluation in the emergency setting. She will continue medications at home as normal. All other questions and concerns addressed at this time. This case was discussed with supervising physician, Dr. Fang, who agrees with disposition. Lab Data 04/07/24 14:20 04/07/24 14:[address] 04/07/24 14:34 IMPRESSION: 1. No large territorial infarct or intracranial bleed. 2. Findings suspicious for normal pressure hydrocephalus. Chest X-Ray 04/07/24 14:35 IMPRESSION: No acute cardiopulmonary process. Laboratory Results WBC 6.36 10^3/uL (3.29-11.43) 04/07/24 14:20 RBC 4.68 10^6/uL (3.85-5.65) 04/07/24 14:20 Hgb 13.70 g/dL (11.27-16.99) 04/07/24 14:20 Hct 41.7 % (36-47) 04/07/24 14:20 MCV 89.1 fl (85-98) 04/07/24 14:20 MCH 29.3 pg (27-33) 04/07/24 14:20 MCHC 32.9 g/dL (30-55) 04/07/24 14:20 RDW 15.0 % (12.1-15.1) 04/07/24 14:20 Plt Count 309 10^3/cmm (157-399) 04/07/24 14:20 MPV 9.4 fL (7.4-10.4) 04/07/24 14:20 Neut % (Auto) 51.5 % 04/07/24 14:20 Lymph % (Auto) 37.9 % 04/07/24 14:20 Floyd % (Auto) 7.4 % 04/07/24 14:20 Eos % (Auto) 2.4 % 04/07/24 14:20 Baso % (Auto) 0.5 % 04/07/24 14:20 Neut # (Auto) 3.28 10^3/uL (1.8-7.7) 04/07/24 14:20 Lymph # (Auto) 2.4 10^3/uL (0.8-4.8) 04/07/24 14:20 Floyd # (Auto) 0.5 10^3/uL (0.2-0.9) 04/07/24 14:20 Eos # (Auto) 0.2 10^3/uL (0.0-0.8) 04/07/24 14:20 Baso # (Auto) 0.0 10^3/uL (0.0-0.1) 04/07/24 14:20 Nucleated RBC % (auto) 0 % 04/07/24 14:20 Nucleated RBCs # 0.0 /100WBC 04/07/24 14:20 PT 12.90 SECONDS (12.1-14.9) 04/07/24 14:20 INR 0.94 (0.8-1.2) 04/07/24 14:20 APTT 26.6 SECONDS (23.9-36.7) 04/07/24 14:20 Sodium 137 mmol/L (136-145) 04/07/24 14:20 Potassium 3.3 mmol/L (3.5-5.1) L 04/07/24 14:20 Chloride 98 mmol/L (98-107) 04/07/24 14:20 Carbon Dioxide 28 mmol/L (22-29) 04/07/24 14:20 Anion Gap 14.3 (5-19) 04/07/24 14:20 BUN 21 mg/dL (8-23) 04/07/24 14:20 Creatinine 0.9 mg/dL (0.5-0.9) 04/07/24 14:20 GFR Calculation Not Reportable 04/07/24 14:20 Glucose 95 mg/dL (65-115) 04/07/24 14:20 Calculated Osmolality 287 mOsm/kg (285-295) 04/07/24 14:20 Calcium 9.1 mg/dL (8.5-10.5) 04/07/24 14:20 Total Bilirubin 0.5 mg/dL (0.15-1.2) 04/07/24 14:20 AST 21 U/L (0-32) 04/07/24 14:20 ALT 14 U/L (0-33) 04/07/24 14:20 Alkaline Phosphatase 66 U/L (35-105) 04/07/24 14:20 Total Protein 7.8 g/dL (6.6-8.7) 04/07/24 14:20 Albumin 4.4 g/dL (3.5-5.2) 04/07/24 14:20 Globulin 3.4 g/dL (1.3-4.6) 04/07/24 14:20 Urine Color Yellow (Yellow) 04/07/24 16:19 Urine Appearance Clear (CLEAR) 04/07/24 16:19 Urine pH 7 (5-7) 04/07/24 16:19 Ur Specific [place] 1.005 (1.005-1.030) 04/07/24 16:19 Urine Protein Neg (Negative) 04/07/24 16:19 Urine Glucose (UA) Norm (Normal) 04/07/24 16:19 Urine Ketones Negative (Negative) 04/07/24 16:19 Urine Blood Neg (Negative) 04/07/24 16:19 Urine Nitrate Negative (Negative) 04/07/24 16:19 Urine Bilirubin Neg (Negative) 04/07/24 16:19 Urine Urobilinogen Norm mg/dL (Negative) 04/07/24 16:19 Ur Leukocyte Esterase 2+ (Negative) H 04/07/24 16:19 Urine RBC None /hpf (0-2) 04/07/24 16:19 Urine WBC 5-10 /hpf (0-5) H 04/07/24 16:19 Ur Squamous Epith Cells 5-10 /hpf (0-5) H 04/07/24 16:19 Amorphous Sediment Not Reportable 04/07/24 16:19 Urine Bacteria 1+ /hpf (NONE) H 04/07/24 16:19 SARS-CoV-2 Ag (Rapid) negative (Negative) 04/07/24 15:20 All radiology interpretation(s) finalized by discharge Discharge Plan Discharge Patient Disposition: Home Clinical Impression: Normal pressure hydrocephalus, Dizziness Condition: Stable Prescriptions: No Action cholecalciferol (vitamin D3) 250 mcg (10,000 unit) tablet 1,000 mcg PO DAILY geriatric htlduqnd-hxlo-pjib Tablet 1 tab PO DAILY acetaminophen 500 mg capsule 500 mg PO QID PRN (Reason: fever or pain) magnesium 250 mg tablet 250 mg PO DAILY melatonin 3 mg capsule 3 mg PO DAILY albuterol sulfate 90 mcg/actuation HFA aerosol inhaler 1 inh inhalation QID PRN (Reason: shortness of breath or wheezing) Qty: 6.7 0RF amlodipine 2.5 mg tablet 2.5 mg PO DAILY Qty: 90 1RF atorvastatin 40 mg tablet 40 mg PO DAILY Qty: 90 3RF losartan 50 mg tablet 50 mg PO DAILY Qty: 90 2RF Rx Instructions: Filled for Dr. Johnson while he is out of clinic. propranolol 60 mg capsule,extended release 24 hr 60 mg PO DAILY Qty: 30 2RF topiramate 25 mg tablet 25 mg PO BID Qty: 60 5RF sertraline [Zoloft] 100 mg tablet 100 mg PO DAILY Qty: 30 5RF Rx Instructions: Needs follow-up appointment. levocetirizine 5 mg tablet 5 mg PO DAILY PRN (Reason: allergy symptoms) Qty: 90 1RF fluticasone propionate [Flonase Allergy Relief] 50 mcg/actuation spray,suspension 1 spray intranasal BID Qty: 16 5RF Rx Instructions: administer into each nostril Discharge Orders: Discharge ED (Routine); Ordered 04/07/24 Ordered By: Pj Valentin Referrals: Nikolay Johnson MD [Primary Care Provider] - Discharge Diet: Usual diet Discharge Activity: Increase activity as tolerated Patient Instructions: Dizziness (ED) Activity Restrictions/Additional Instructions: Follow-up with Dr. Delgado next week as discussed. Continue plan for outpatient vestibular rehab. Plenty of fluids. You will be called with any abnormal results of urinalysis. Please return if you develop any significant headaches, fevers, neck pain, or other concerning symptoms you may have. Coding Level of Care Code ED Driller And Broacher for Chg Fwd Documented by User: Jean Pierre Wheatley DO 04/16/24 06:56 HPI - Dizziness 2 General: Chief Complaint: Dizziness Stated Complaint: stroke like symtoms sent by Time Seen by Provider: 04/07/24 14:08 PFSH ED 2 PFSH: Medical History (Updated 04/15/24 @ 00:01 by CLINT Almendarez) Allergic rhinitis due to allergen Reactive airway disease without asthma Pre-diabetes HgbA1C 5.8 08/23/2023 Hx of cataract left eye CAD (coronary artery disease) mild to moderate disease by coronary CTA with negative CT FFR [facility] Essential hypertension Mixed dyslipidemia Postural hypotension Psychiatric care Generalized anxiety disorder Major depressive disorder, recurrent, mild Surgical History (Updated 04/11/24 @ 17:36 by Nikolay Johnson MD) S/P shoulder replacement Family History Father FH: carotid endarterectomy Hypertension Carotid artery stenosis Mother Headache Hypertension Brother Myocardial infarction Hypertension Grandfather Stroke Family/Other Psychiatric diagnosis Social History Smoking and tobacco/nicotine status: never used tobacco/nicotine Quit status (tobacco/nicotine): has quit using Year quit tobacco: 1979 Second hand smoke exposure: Yes Alcohol intake: current Alcohol intake frequency: holidays/special occasions only Alcohol type: beer and wine Substance/Drug Use: never Current gender identity: Female Course 2 Vital Signs: Vital signs: Vital Signs Temperature 98 F 04/07/24 14:02 Pulse Rate 77 04/07/24 16:54 Respiratory Rate 16 04/07/24 16:54 Blood Pressure 130/72 04/07/24 16:54 Pulse Oximetry 98 04/07/24 16:54 Oxygen Delivery Me thod Room Air 04/07/24 16:00 MDM - Dizziness Medical Decision Making Patient referred over to the ED from urgent care due to dizziness, acute on chronic. States she has received neurological workups in the past, and is set to do vestibular rehab this week. Her vitals on arrival unremarkable, condition has remained stable throughout the ED course. Her neurological exam was completely normal with an NIH of 0. Basic blood work unremarkable. Urinalysis did reveal signs of a urinary tract infection. Chest x-ray normal. Head CT did not identify any intracranial bleeds, though commented on findings for a normal pressure hydrocephalus. No recent previous CTs to compare to, though an MRI from 2005 shows evidence of the same. I will refer patient back to Dr. Delgado, as she has seen her before, for reevaluation of this and further workup as needed. In the meantime I will treat for a urinary tract infection, and encourage plenty of fluids. She is set to start vestibular rehab on Tuesday of this week, will continue that plan. My suspicion for any other intracranial pathology very low at this point, however did provide strict return precautions that would warrant reevaluation in the emergency setting. She will continue medications at home as normal. All other questions and concerns addressed at this time. This case was discussed with supervising physician, Dr. Fang, who agrees with disposition. Chart reviewed Lab Data 04/07/24 14:20 04/07/24 14:[address] 04/07/24 14:34 IMPRESSION: 1. No large territorial infarct or intracranial bleed. 2. Findings suspicious for normal pressure hydrocephalus. Chest X-Ray 04/07/24 14:35 IMPRESSION: No acute cardiopulmonary process. Laboratory Results WBC 6.36 10^3/uL (3.29-11.43) 04/07/24 14:20 RBC 4.68 10^6/uL (3.85-5.65) 04/07/24 14:20 Hgb 13.70 g/dL (11.27-16.99) 04/07/24 14:20 Hct 41.7 % (36-47) 04/07/24 14:20 MCV 89.1 fl (85-98) 04/07/24 14:20 MCH 29.3 pg (27-33) 04/07/24 14:20 MCHC 32.9 g/dL (30-55) 04/07/24 14:20 RDW 15.0 % (12.1-15.1) 04/07/24 14:20 Plt Count 309 10^3/cmm (157-399) 04/07/24 14:20 MPV 9.4 fL (7.4-10.4) 04/07/24 14:20 Neut % (Auto) 51.5 % 04/07/24 14:20 Lymph % (Auto) 37.9 % 04/07/24 14:20 Floyd % (Auto) 7.4 % 04/07/24 14:20 Eos % (Auto) 2.4 % 04/07/24 14:20 Baso % (Auto) 0.5 % 04/07/24 14:20 Neut # (Auto) 3.28 10^3/uL (1.8-7.7) 04/07/24 14:20 Lymph # (Auto) 2.4 10^3/uL (0.8-4.8) 04/07/24 14:20 Floyd # (Auto) 0.5 10^3/uL (0.2-0.9) 04/07/24 14:20 Eos # (Auto) 0.2 10^3/uL (0.0-0.8) 04/07/24 14:20 Baso # (Auto) 0.0 10^3/uL (0.0-0.1) 04/07/24 14:20 Nucleated RBC % (auto) 0 % 04/07/24 14:20 Nucleated RBCs # 0.0 /100WBC 04/07/24 14:20 PT 12.90 SECONDS (12.1-14.9) 04/07/24 14:20 INR 0.94 (0.8-1.2) 04/07/24 14:20 APTT 26.6 SECONDS (23.9-36.7) 04/07/24 14:20 Sodium 137 mmol/L (136-145) 04/07/24 14:20 Potassium 3.3 mmol/L (3.5-5.1) L 04/07/24 14:20 Chloride 98 mmol/L (98-107) 04/07/24 14:20 Carbon Dioxide 28 mmol/L (22-29) 04/07/24 14:20 Anion Gap 14.3 (5-19) 04/07/24 14:20 BUN 21 mg/dL (8-23) 04/07/24 14:20 Creatinine 0.9 mg/dL (0.5-0.9) 04/07/24 14:20 GFR Calculation Not Reportable 04/07/24 14:20 Glucose 95 mg/dL (65-115) 04/07/24 14:20 Calculated Osmolality 287 mOsm/kg (285-295) 04/07/24 14:20 Calcium 9.1 mg/dL (8.5-10.5) 04/07/24 14:20 Total Bilirubin 0.5 mg/dL (0.15-1.2) 04/07/24 14:20 AST 21 U/L (0-32) 04/07/24 14:20 ALT 14 U/L (0-33) 04/07/24 14:20 Alkaline Phosphatase 66 U/L (35-105) 04/07/24 14:20 Total Protein 7.8 g/dL (6.6-8.7) 04/07/24 14:20 Albumin 4.4 g/dL (3.5-5.2) 04/07/24 14:20 Globulin 3.4 g/dL (1.3-4.6) 04/07/24 14:20 Urine Color Yellow (Yellow) 04/07/24 16:19 Urine Appearance Clear (CLEAR) 04/07/24 16:19 Urine pH 7 (5-7) 04/07/24 16:19 Ur Specific [place] 1.005 (1.005-1.030) 04/07/24 16:19 Urine Protein Neg (Negative) 04/07/24 16:19 Urine Glucose (UA) Norm (Normal) 04/07/24 16:19 Urine Ketones Negative (Negative) 04/07/24 16:19 Urine Blood Neg (Negative) 04/07/24 16:19 Urine Nitrate Negative (Negative) 04/07/24 16:19 Urine Bilirubin Neg (Negative) 04/07/24 16:19 Urine Urobilinogen Norm mg/dL (Negative) 04/07/24 16:19 Ur Leukocyte Esterase 2+ (Negative) H 04/07/24 16:19 Urine RBC None /hpf (0-2) 04/07/24 16:19 Urine WBC 5-10 /hpf (0-5) H 04/07/24 16:19 Ur Squamous Epith Cells 5-10 /hpf (0-5) H 04/07/24 16:19 Amorphous Sediment Not Reportable 04/07/24 16:19 Urine Bacteria 1+ /hpf (NONE) H 04/07/24 16:19 SARS-CoV-2 Ag (Rapid) negative (Negative) 04/07/24 15:20 Discharge Plan Discharge Patient Disposition: Home Clinical Impression: Normal pressure hydrocephalus, Dizziness Condition: Stable Prescriptions: No Action cholecalciferol (vitamin D3) 250 mcg (10,000 unit) tablet 1,000 mcg PO DAILY geriatric fmhuenwi-jfjv-aiww Tablet 1 tab PO DAILY acetaminophen 500 mg capsule 500 mg PO QID PRN (Reason: fever or pain) magnesium 250 mg tablet 250 mg PO DAILY melatonin 3 mg capsule 3 mg PO DAILY albuterol sulfate 90 mcg/actuation HFA aerosol inhaler 1 inh inhalation QID PRN (Reason: shortness of breath or wheezing) Qty: 6.7 0RF amlodipine 2.5 mg tablet 2.5 mg PO DAILY Qty: 90 1RF atorvastatin 40 mg tablet 40 mg PO DAILY Qty: 90 3RF losartan 50 mg tablet 50 mg PO DAILY Qty: 90 2RF Rx Instructions: Filled for Dr. Johnson while he is out of clinic. propranolol 60 mg capsule,extended release 24 hr 60 mg PO DAILY Qty: 30 2RF topiramate 25 mg tablet 25 mg PO BID Qty: 60 5RF sertraline [Zoloft] 100 mg tablet 100 mg PO DAILY Qty: 30 5RF Rx Instructions: Needs follow-up appointment. levocetirizine 5 mg tablet 5 mg PO DAILY PRN (Reason: allergy symptoms) Qty: 90 1RF fluticasone propionate [Flonase Allergy Relief] 50 mcg/actuation spray,suspension 1 spray intranasal BID Qty: 16 5RF Rx Instructions: administer into each nostril Discharge Orders: Discharge ED (Routine); Ordered 04/07/24 Ordered By: Pj Valentin Referrals: Nikolay Johnson MD [Primary Care Provider] - Discharge Diet: Usual diet Discharge Activity: Increase activity as tolerated Patient Instructions: Dizziness (ED) Activity Restrictions/Additional Instructions: Follow-up with Dr. Delgado next week as discussed. Continue plan for outpatient vestibular rehab. Plenty of fluids. You will be called with any abnormal results of urinalysis. Please return if you develop any significant headaches, fevers, neck pain, or other concerning symptoms you may have. Coding Level of Care Code ED Driller And Broacher for Zane Navas
[2024-04-07 14:46] LABS: Basophils % 0.5 %; Eosinophils # 0.2 10^3/uL (0.0-0.8); Eosinophils % 2.4 %; Hematocrit 41.7 % (36-47); Lymphocytes # 2.4 10^3/uL (0.8-4.8); Lymphocytes % 37.9 %; Mean Corpuscular HGB Conc 32.9 g/dL (30-55); Mean Corpuscular Hemoglobin 29.3 pg (27-33); Mean Corpuscular Volume 89.1 fl (85-98); Mean Platelet Volume 9.4 fL (7.4-10.4); Monocytes # 0.5 10^3/uL (0.2-0.9); Monocytes % 7.4 %; Neutrophils # 3.28 10^3/uL (1.8-7.7); Neutrophils % 51.5 %; Nucleated Red Blood Cells % 0 %; Platelet Count 309 10^3/cmm (157-399); Red Blood Count 4.68 10^6/uL (3.85-5.65); White Blood Count 6.36 10^3/uL (3.29-11.43)
[2024-04-07] MEDS: sodium chloride 0.9% 1,000 ML 999 ML IV (14:46)
[2024-04-07 14:47] VITALS: BP 124/80; BP 127/81; BP 128/72; PULSE 73; PULSE 75; PULSE 80
[2024-04-07 14:51] LABS: INR 0.94 (0.8-1.2)
--- NOTE | 2024-04-07 14:51 | PC.PHAR ---
PT VERIFIED SHE TAKES ALL THESE MEDICATIONS. MANY MEDICATIONS HAVE LAST FILL DATES IN 2022. VERIFIED WITH [facility], MOST FILL DATES ARE CORRECT. ATORVASTATIN 40MG AND LOSARTAN 50MG HAVE NEWER ORDERS PHONED IN BUT NEVER PICKED UP. AMLODIPINE 2.5MG AND PROPRANOLOL ER 60MG HAVE OLDEST FILL DATES OF MAY 2023. PT DOES SEEM A BIT CONFUSED ABOUT WHEN LAST TAKEN AND IS UNSURE. 04/07/24
[2024-04-07 14:52] LABS: Partial Thromboplastin Time 26.6 SECONDS (23.9-36.7)
[2024-04-07] MEDS: metoclopramide 5 mg/mL SDV 2 mL 10 MG IVP (14:52)
[2024-04-07 14:55] LABS: Alanine Aminotransferase 14 U/L (0-33); Albumin Level 4.4 g/dL (3.5-5.2); Alkaline Phosphatase 66 U/L (35-105); Anion Gap 14.3 (5-19); Aspartate Amino Transferase 21 U/L (0-32); Blood Urea Nitrogen 21 mg/dL (8-23); Calcium 9.1 mg/dL (8.5-10.5); Carbon Dioxide 28 mmol/L (22-29); Chloride 98 mmol/L (98-107); Creatinine Clr Calc Pharmacy 49.4749; Globulin 3.4 g/dL (1.3-4.6); Glucose 95 mg/dL (65-115); Osmolality Calculated 287 mOsm/kg (285-295); Potassium 3.3 mmol/L (3.5-5.1); Sodium 137 mmol/L (136-145); Total Bilirubin 0.5 mg/dL (0.15-1.2); Total Protein 7.8 g/dL (6.6-8.7)
[2024-04-07] MEDS: potassium chloride ER 20 mEq Tablet 40 MEQ PO (15:20)
[2024-04-07 15:45] LABS: SARS Covid-2 Antigen negative (Negative)
[2024-04-07 16:00] VITALS: BP 136/89; PULSE 80; RESP 14; O2SAT 99
--- NOTE | 2024-04-07 16:42 | DCPLANNER ---
Sent ER follow up request to the Neurology clinic 04/07/24 [id number]
[2024-04-07 16:54] VITALS: BP 130/72; PULSE 77; RESP 16; O2SAT 98
[2024-04-07 17:07] LABS: Add Urine Culture? No; Add Urine Microscopic? YES; Bacteria Urine 1+ /hpf; Bilirubin Urine Neg (Negative); Blood Urine Neg (Negative); Glucose Urine UA Norm (Normal); Ketones Urine Negative (Negative); Leukocyte Esterase Urine 2+ (Negative); Nitrate Urine Negative (Negative); Protein Urine Neg (Negative); Specific Gravity, Urine 1.005 (1.005-1.030); Urine Appearance Clear (CLEAR); Urine Color Yellow (Yellow); Urobilinogen Urine Norm (Negative); pH Urine 7 (5-7)
== END 2024-04-07 16:55 | disposition home or self-care (01) ==
PROVIDERS: Emergency Provider Physician Assistant; PCP Family Medicine Adult Medicine
DX: R42 Dizziness and giddiness (principal); G91.2 (Idiopathic) normal pressure hydrocephalus; Z11.52 Encounter for screening for COVID-19; Z87.891 Personal history of nicotine dependence; I25.10 Atherosclerotic heart disease of native coronary artery without angina pectoris; I10 Essential (primary) hypertension; E78.2 Mixed hyperlipidemia
CPT/HCPCS: 70450; 71045; 80053; 81001; 85025; 85610; 85730; 87426; 93005; 96361; 96374; 99285; J2765; J7030

== ENCOUNTER 2024-04-11 06:00 | Outpatient (RCR) | payer MEDICARE, OTHER, SELFPAY | END 2024-04-13 23:59 | disposition home or self-care (01) | LOC: SPT 06:00 | PROVIDERS: PCP Family Medicine Adult Medicine; Visit Provider Specialist | DX: M54.2 Cervicalgia (principal); G43.809 Other migraine, not intractable, without status migrainosus | CPT/HCPCS: 95992; 97161 ==

== ENCOUNTER 2024-04-14 06:00 | Outpatient (RCR) | payer MEDICARE, OTHER, SELFPAY | END 2024-05-07 23:59 | disposition home or self-care (01) | LOC: SPT 06:00 | PROVIDERS: PCP Family Medicine Adult Medicine; Visit Provider Specialist | DX: G43.809 Other migraine, not intractable, without status migrainosus (principal); M54.2 Cervicalgia | CPT/HCPCS: 97112 ==

== ENCOUNTER → 2024-05-02 15:36 | Outpatient (BNVA) | payer MEDICARE, OTHER, SELFPAY | PROVIDERS: PCP Family Medicine Adult Medicine; Visit Provider Specialist | DX: R29.90 Unspecified symptoms and signs involving the nervous system (principal); G91.2 (Idiopathic) normal pressure hydrocephalus; G31.84 Mild cognitive impairment of uncertain or unknown etiology | CPT/HCPCS: 96116; 99214; 99215 ==

== ENCOUNTER → 2024-06-13 13:37 | Outpatient (BNVA) | payer MEDICARE, OTHER, SELFPAY | PROVIDERS: PCP Family Medicine Adult Medicine; Visit Provider Specialist | DX: G31.84 Mild cognitive impairment of uncertain or unknown etiology (principal); G43.809 Other migraine, not intractable, without status migrainosus; R29.90 Unspecified symptoms and signs involving the nervous system; G91.2 (Idiopathic) normal pressure hydrocephalus | CPT/HCPCS: 0346U; 36415; 82542; 99215 ==

== ENCOUNTER → 2024-06-28 13:57 | Outpatient (BNVA) | payer MEDICARE, OTHER, SELFPAY | PROVIDERS: PCP Family Medicine Adult Medicine; Visit Provider Orthopaedic Surgery | DX: M47.812 Spondylosis without myelopathy or radiculopathy, cervical region (principal); M54.9 Dorsalgia, unspecified | CPT/HCPCS: 72050; 72110; 99214 ==

== ENCOUNTER → 2024-07-02 10:15 | Outpatient (BNVA) | payer MEDICARE, OTHER, SELFPAY | PROVIDERS: PCP Family Medicine Adult Medicine; Visit Provider Nurse Practitioner Family | DX: I10 Essential (primary) hypertension (principal); I25.119 Atherosclerotic heart disease of native coronary artery with unspecified angina pectoris; Z87.891 Personal history of nicotine dependence | CPT/HCPCS: 99214 ==

== ENCOUNTER → 2024-07-17 09:53 | Outpatient (BNVA) | payer MEDICARE, OTHER, SELFPAY | PROVIDERS: PCP Family Medicine Adult Medicine; Visit Provider Internal Medicine Cardiovascular Disease | DX: R06.02 Shortness of breath (principal); I25.118 Atherosclerotic heart disease of native coronary artery with other forms of angina pectoris; E78.2 Mixed hyperlipidemia; I10 Essential (primary) hypertension; F41.1 Generalized anxiety disorder; Z87.891 Personal history of nicotine dependence | CPT/HCPCS: 99214 ==

== ENCOUNTER → 2024-07-19 14:45 | Outpatient (BNVA) | payer MEDICARE, OTHER, SELFPAY | PROVIDERS: PCP Family Medicine Adult Medicine; Visit Provider Nurse Practitioner Family | DX: L82.1 Other seborrheic keratosis (principal); L57.0 Actinic keratosis; L81.4 Other melanin hyperpigmentation; D18.01 Hemangioma of skin and subcutaneous tissue; L82.0 Inflamed seborrheic keratosis; L91.8 Other hypertrophic disorders of the skin | CPT/HCPCS: 11200; 17000; 17110; 99213 ==

== ENCOUNTER 2024-08-07 14:16 | Emergency (ER) | payer MEDICARE, OTHER, SELFPAY ==
--- NOTE | 2024-08-07 14:19 | ECG_ITS ---
[facility] Test Date: 2024-08-07 Pat Name: Petrona Esquivel Department: Room: Gender: Female Siphon Operator: : [id number] Requested By: Servando Warren Order Number: [id number] William MD: Lucas Cai M.D. Measurements Intervals [place] Rate: 60 P: 41 UT: 177 QRS: 31 QRSD: 72 T: 53 QT: 376 QTc: 376 Interpretive Statements SINUS RHYTHM LOW QRS VOLTAGE IN PRECORDIAL LEADS [QRS DEFLECTION < 1.0 mV IN CHEST LEADS] NON SPECIFIC ST T WAVE CHANGES Compared to ECG 04/07/2024 14:06:41 Low QRS voltage now present Electronically Signed On 08-07-2024 16:51:20 CDT by Lucas Cai M.D. [id number]
--- NOTE | 2024-08-07 14:19 | XRR_ITS ---
PROCEDURE INFORMATION: Exam: XR Chest Exam date and time: 08/07/2024 2:30 PM Age: 69 years old Clinical indication: Pain; Angina pectoris; Additional info: Cp TECHNIQUE: Imaging protocol: Radiologic exam of the chest. Views: 1 view. COMPARISON: CR (CHEST, ) 04/07/2024 2:43 PM FINDINGS: Lungs: Unremarkable. No consolidation. Pleural spaces: Unremarkable. No pleural effusion. No pneumothorax. Heart/Mediastinum: Unremarkable. No cardiomegaly. Bones/joints: Reverse left shoulder arthroplasty noted. Visualized osseous structures are intact. XR/XR chest 1V portable [id number] IMPRESSION: No acute findings.
[2024-08-07 14:20] VITALS: BP 148/76; PULSE 59; TEMP 36.7; O2SAT 97; BMI 25.2
[2024-08-07 14:56] LABS: Basophils % 0.3 %; Eosinophils # 0.1 10^3/uL (0.0-0.8); Eosinophils % 2.1 %; Hematocrit 40.3 % (36-47); Lymphocytes # 1.7 10^3/uL (0.8-4.8); Lymphocytes % 25.6 %; Mean Corpuscular HGB Conc 31.5 g/dL (30-55); Mean Corpuscular Hemoglobin 29.4 pg (27-33); Mean Corpuscular Volume 93.3 fl (85-98); Mean Platelet Volume 9.1 fL (7.4-10.4); Monocytes # 0.5 10^3/uL (0.2-0.9); Monocytes % 7.5 %; Neutrophils # 4.18 10^3/uL (1.8-7.7); Neutrophils % 64.2 %; Nucleated Red Blood Cells % 0 %; Platelet Count 201 10^3/cmm (157-399); Red Blood Count 4.32 10^6/uL (3.85-5.65); Red Cell Distribution Width 13.2 % (12.1-15.1); White Blood Count 6.52 10^3/uL (3.29-11.43)
[2024-08-07 15:13] VITALS: BP 141/68; PULSE 59; RESP 17; O2SAT 97
[2024-08-07 15:15] LABS: Troponin(5th) Baseline 7 ng/L (0-10)
[2024-08-07 15:16] LABS: Alanine Aminotransferase 14 U/L (0-33); Albumin Level 4.6 g/dL (3.5-5.2); Alkaline Phosphatase 68 U/L (35-105); Anion Gap 13.8 (5-19); Aspartate Amino Transferase 20 U/L (0-32); Blood Urea Nitrogen 16 mg/dL (8-23); Carbon Dioxide 28 mmol/L (22-29); Chloride 101 mmol/L (98-107); Creatinine Clr Calc Pharmacy 56.1028; Globulin 2.4 g/dL (1.3-4.6); Glucose 101 mg/dL (65-115); Lipase 39 U/L (13-60); Osmolality Calculated 289 mOsm/kg (285-295); Potassium 3.8 mmol/L (3.5-5.1); Sodium 139 mmol/L (136-145); Total Bilirubin 0.5 mg/dL (0.15-1.2)
--- NOTE | 2024-08-07 15:21 | PC.NURSE ---
She expresses that is also what brought her here. Pt feels as if she may be experiencing stroke symptoms. Pt states, I am hoping that coming here can help with hurrying up my referrals and my angiogram! Do you know how that works? Do they go in your leg or arm? also stated, The hospital has everything and I need something.
--- NOTE | 2024-08-07 15:34 | ED_ITS ---
Documented by User: Jean Pierre Wheatley DO 08/08/24 06:03 HPI - Chest Pain 2 General: Chief Complaint: Chest Pain Stated Complaint: Chest Pressure/ High BP Time Seen by Provider: 08/07/24 15:07 History of Present Illness: 69-year-old female presents emergency ro om with several vague complaints. She is concerned about chest discomfort she had some brief chest discomfort last for a few seconds she has also had some myoclonic jerks in the upper and lower extremities. She took nitro for the yesterday. She noted that after she took some nitro blood pressure decreased. Patient reports she had a positive stress test when she was in [facility]. There is a scanned report of a Holter monitor and a Persantine infusion stress test in the chart. Scanned report shows that was done on December 17, 2023 and was reported as positive. She is not currently having chest pain at this time. Is also MoCA test with a score of 24 out of 30. In taking patient's history is difficult at times she has difficult time recollecting things or answering questions that she is divergent answers frequently. Patient care was transitioned to mo at shift change. 69-year-old female who presents to the e mergency room with concern for heart disease. She has been taking measurements of her blood pressure at home. She had some chest pain a few days back perhaps. No chest pain yesterday but she says she felt weird . Associated symptoms: Deny abdominal pain, dyspnea or fever(s) Related Data Home Medications Medication Instructions Recorded Confirmed geriatric erbwwkmy-kkaq-khif 1 tab PO DAILY 02/11/20 07/02/24 cholecalciferol (vitamin D3) 250 1,000 mcg PO DAILY 02/05/22 07/02/24 mcg (10,000 unit) tablet magnesium 250 mg tablet 250 mg PO DAILY 02/05/22 07/02/24 acetaminophen 500 mg capsule 500 mg PO QID PRN fever or pain 08/24/22 07/02/24 melatonin 3 mg capsule 3 mg PO DAILY 08/24/22 07/02/24 Previous Rx's Medication Instructions Recorded atorvastatin 40 mg tablet 40 mg PO DAILY cholesterol/fats 04/10/24 #90 tabs losartan 50 mg tablet 50 mg PO DAILY #90 tabs 04/10/24 albuterol sulfate 90 mcg/actuation 1 inh inhalation QID PRN shortness 04/27/24 aerosol inhaler of breath or wheezing #8.5 grams amlodipine 5 mg tablet 5 mg PO DAILY blood pressure #90 05/01/24 tabs sertraline 100 mg tablet (Zoloft) 150 mg (1.5 x 100 mg) PO DAILY 06/01/24 mental health #45 tabs metoprolol succinate 25 mg 25 mg PO DAILY #90 tabs 06/28/24 tablet,extended release 24 hr nitroglycerin 0.4 mg sublingual 0.4 mg sublingual Q5M PRN chest 07/17/24 tablet pain 30 days #30 tabs Allergies Allergy/AdvReac Type Severity Reaction Status Date / Time cinnamon Allergy Intermediate Coughing & Verified 08/07/24 14:26 throat itching trazodone AdvReac Intermediate ADR-Depress Verified 08/07/24 14:26 ion topomax AdvReac Intermediate Depressed Uncoded 08/07/24 14:26 Unknown antibiotic AdvReac Unknown Anaphylaxis Uncoded 08/07/24 14:26 Review of Systems 2 Const: Denies: fever(s) or chills Card: Reports: chest pain Resp: Denies: dyspnea GI: Denies: abdominal pain : Denies: dysuria, urinary frequency or urinary urgency Musc: Denies: neck pain or back pain Skin/Breast: Denies: rash PFSH ED 2 PFSH: Medical History DDD (degenerative disc disease), lumbar Allergic rhinitis due to allergen Reactive airway disease without asthma Pre-diabetes HgbA1C 5.8 08/23/2023 Hx of cataract left eye CAD (coronary artery disease) mild to moderate disease by coronary CTA with negative CT FFR [facility] Essential hypertension Mixed dyslipidemia Postural hypotension Psychiatric care Generalized anxiety disorder Major depressive disorder, recurrent, mild Surgical History S/P shoulder replacement Family History Father FH: carotid endarterectomy Hypertension Carotid artery stenosis Mother Headache Hypertension Brother Myocardial infarction Hypertension Grandfather Stroke Family/Other Psychiatric diagnosis Social History Smoking and tobacco/nicotine status: former use of tobacco/nicotine (quit 40 years ago) Quit status (tobacco/nicotine): has quit using Year quit tobacco: 1979 Second hand smoke exposure: Yes Alcohol intake: current Alcohol intake frequency: holidays/special occasions only Alcohol type: beer and wine Substance/Drug Use: never Current gender identity: Female Physical Exam 2 Const: COMMON NORMALS: no acute distress GENERAL APPEARANCE: cooperative and comfortable ORIENTATION/CONSCIOUSNESS: Yes awake HENMT: COMMON NORMALS: normocephalic, atraumatic and hearing grossly normal bilaterally HEAD & SCALP: normocephalic and atraumatic Resp: COMMON NORMALS: normal respiratory effort, No retractions, No use of accessory muscles and clear to auscultation bilaterally AUSCULTATION: clear to auscultation bilaterally Cardio: COMMON NORMALS: regular rate, regular rhythm and No murmurs present (Cardio) RATE: regular rate RHYTHM: regular rhythm GI: COMMON NORMALS: Soft to palpation and No hepatosplenomegaly present A USCULTATION: Yes normoactive bowel sounds PALPATION: Yes Soft to palpation, No Tenderness to palpation present (GI), No Guarding due to palpation present (GI) and Yes No hepatosplenomegaly present Extremity: COMMON NORMALS: normal to inspection, capillary refill normal, no clubbing, cyanosis or edema, no calf tenderness and no pedal edema Skin: COMMON NORMALS: no rashes or lesions noted GENERAL SKIN EXAM: no rashes or lesions noted Course 2 Vital Signs: Vital signs: Vital Signs Temperature 98.0 F 08/07/24 14:20 Pulse Rate 56 L 08/07/24 18:00 Respiratory Rate 16 08/07/24 18:00 Blood Pressure 174/79 08/07/24 18:00 Pulse Oximetry 95 08/07/24 18:00 Oxygen Delivery Nm thod Room Air 08/07/24 17:39 MDM - Chest Pain Medical Decision Making Care signed out to Dr. Stafford at change of shift. See final notes for diagnosis and disposition. Patient care transitioned to mo at shift change from Dr. Wheatley. Differential diagnosis for patient with chest pain includes but is not limited to and based on the above HPI, review of systems and physical exam: Pneumonia. unstable angina. angina. Acute coronary syndrome / CT. Pulmonary embolism. Costochondritis / musculoskeletal. Pleurisy. Pericarditis. Esophageal spasm. Pancreatis. Cholecystitis. Orders placed to evaluate differential diagnosis based on the above differential, HPI and physical exam Chest x-ray: No acute process. No infiltrate. No pneumothorax. This was reviewed and interpreted by myself the ER physician. EKG: Time 1627. Rate 65. Normal sinus rhythm, No ST-T changes, no ectopy, normal CA & QRS intervals, This was reviewed and interpreted by myself the ER physician at 1630. Lab Review: Laboratory results were reviewed and interpreted by myself the emergency room physician. Lab work is unremarkable. No leukocytosis. No anemia. No renal failure. BUN and creatinine are 16 and 0.8. Serial cardiac markers are negative. Assessment and plan: Noncardiac chest pain - Discharged home - Discussed findings and plan with patient. Answered any questions. - All laboratory values were reviewed and interpreted personally by myself, the ER physician - All imaging was reviewed and interpreted personally by myself, the ER physician. - Evaluation and treatment of this problem were appropriate in the emergency setting Lab Data 08/07/24 14:50 08/07/24 14:50 Radiology Impressions Chest X-Ray 08/07/24 14:19 IMPRESSION: No acute findings. Laboratory Results WBC 6.52 10^3/uL (3.29-11.43) 08/07/24 14:50 RBC 4.32 10^6/uL (3.85-5.65) 08/07/24 14:50 Hgb 12.70 g/dL (11.27-16.99) 08/07/24 14:50 Hct 40.3 % (36-47) 08/07/24 14:50 MCV 93.3 fl (85-98) 08/07/24 14:50 MCH 29.4 pg (27-33) 08/07/24 14:50 MCHC 31.5 g/dL (30-55) 08/07/24 14:50 RDW 13.2 % (12.1-15.1) 08/07/24 14:50 Plt Count 201 10^3/cmm (157-399) 08/07/24 14:50 MPV 9.1 fL (7.4-10.4) 08/07/24 14:50 Neut % (Auto) 64.2 % 08/07/24 14:50 Lymph % (Auto) 25.6 % 08/07/24 14:50 [place] % (Auto) 7.5 % 08/07/24 14:50 Eos % (Auto) 2.1 % 08/07/24 14:50 Baso % (Auto) 0.3 % 08/07/24 14:50 Neut # (Auto) 4.18 10^3/uL (1.8-7.7) 08/07/24 14:50 Lymph # (Auto) 1.7 10^3/uL (0.8-4.8) 08/07/24 14:50 [place] # (Auto) 0.5 10^3/uL (0.2-0.9) 08/07/24 14:50 Eos # (Auto) 0.1 10^3/uL (0.0-0.8) 08/07/24 14:50 Baso # (Auto) 0.0 10^3/uL (0.0-0.1) 08/07/24 14:50 Nucleated RBC % (auto) 0 % 08/07/24 14:50 Nucleated RBCs # 0.0 /100WBC 08/07/24 14:50 Sodium 139 mmol/L (136-145) 08/07/24 14:50 Potassium 3.8 mmol/L (3.5-5.1) 08/07/24 14:50 Chloride 101 mmol/L (98-107) 08/07/24 14:50 Carbon Dioxide 28 mmol/L (22-29) 08/07/24 14:50 Anion Gap 13.8 (5-19) 08/07/24 14:50 BUN 16 mg/dL (8-23) 08/07/24 14:50 Creatinine 0.8 mg/dL (0.5-0.9) 08/07/24 14:50 GFR Calculation Not Reportable 08/07/24 14:50 Glucose 101 mg/dL (65-115) 08/07/24 14:50 Calculated Osmolality 289 mOsm/kg (285-295) 08/07/24 14:50 Calcium 9.0 mg/dL (8.5-10.5) 08/07/24 14:50 Total Bilirubin 0.5 mg/dL (0.15-1.2) 08/07/24 14:50 AST 20 U/L (0-32) 08/07/24 14:50 ALT 14 U/L (0-33) 08/07/24 14:50 Alkaline Phosphatase 68 U/L (35-105) 08/07/24 14:50 Troponin T Baseline 7 ng/L (0-10) 08/07/24 14:50 Troponin T 120 Minute 7.80 ng/L (0-10) 08/07/24 16:48 Delta Troponin T 0.80 ABS# (0-10) 08/07/24 16:48 Total Protein 7.0 g/dL (6.6-8.7) 08/07/24 14:50 Albumin 4.6 g/dL (3.5-5.2) 08/07/24 14:50 Globulin 2.4 g/dL (1.3-4.6) 08/07/24 14:50 Lipase 39 U/L (13-60) 08/07/24 14:50 Discharge Plan Discharge Patient Disposition: Home Clinical Impression: Non-cardiac chest pain Condition: Stable Prescriptions: No Action cholecalciferol (vitamin D3) 250 mcg (10,000 unit) tablet 1,000 mcg PO DAILY geriatric [id number] Tablet 1 tab PO DAILY acetaminophen 500 mg capsule 500 mg PO QID PRN (Reason: fever or pain) magnesium 250 mg tablet 250 mg PO DAILY sertraline [Zoloft] 100 mg tablet 150 mg PO DAILY Qty: 45 2RF nitroglycerin 0.4 mg tablet, sublingual 0.4 mg sublingual Q5M PRN (Reason: chest pain) 30 Days Qty: 30 3RF Rx Instructions: until response; do not exceed 3 doses per episode melatonin 3 mg capsule 3 mg PO DAILY atorvastatin 40 mg tablet 40 mg PO DAILY Qty: 90 3RF losartan 50 mg tablet 50 mg PO DAILY Qty: 90 2RF Rx Instructions: Filled for Dr. Johnson while he is out of clinic. albuterol sulfate 90 mcg/actuation HFA aerosol inhaler 1 inh inhalation QID PRN (Reason: shortness of breath or wheezing) Qty: 8.5 5RF amlodipine 5 mg tablet 5 mg PO DAILY Qty: 90 1RF metoprolol succinate 25 mg tablet extended release 24 hr 25 mg PO DAILY Qty: 90 3RF Discharge Orders: Discharge ED (Routine); Ordered 08/07/24 Ordered By: Tamia Stafford Referrals: Nikolay Johnson MD [Primary Care Provider] - Rachel Cornelius MD [Family Provider] - Discharge Diet: Usual diet Discharge Activity: Increase activity as tolerated Patient Instructions: Noncardiac Chest Pain (ED) Activity Restrictions/Additional Instructions: Thank you for choosing [facility] for your healthcare needs today. Please realize this is an emergency room and that we are providing you with a medical screening exam and this may not be complete and all inclusive of all the testing and or work up that you may need to determine your ailment or severity of your illness. You have been screened and evaluated and felt safe for discharge. Health conditions do change or evolve sometimes and as such it is important that you follow up with your Primary Doctor to be re checked, 3-5 days is a general good time frame for follow up. 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 69-year-old female who presents to the e mergency room with concern for heart disease. She has been taking measurements of her blood pressure at home. She had some chest pain a few days back perhaps. No chest pain yesterday but she says she felt weird . Related Data Home Medications Medication Instructions Recorded Confirmed geriatric [id number]-[id number] 1 tab PO DAILY 02/11/20 07/02/24 cholecalciferol (vitamin D3) 250 1,000 mcg PO DAILY 02/05/22 07/02/24 mcg (10,000 unit) tablet magnesium 250 mg tablet 250 mg PO DAILY 02/05/22 07/02/24 acetaminophen 500 mg capsule 500 mg PO QID PRN fever or pain 08/24/22 07/02/24 melatonin 3 mg capsule 3 mg PO DAILY 08/24/22 07/02/24 Previous Rx's Medication Instructions Recorded atorvastatin 40 mg tablet 40 mg PO DAILY cholesterol/fats 04/10/24 #90 tabs losartan 50 mg tablet 50 mg PO DAILY #90 tabs 04/10/24 albuterol sulfate 90 mcg/actuation 1 inh inhalation QID PRN shortness 04/27/24 aerosol inhaler of breath or wheezing #8.5 grams amlodipine 5 mg tablet 5 mg PO DAILY blood pressure #90 05/01/24 tabs sertraline 100 mg tablet (Zoloft) 150 mg (1.5 x 100 mg) PO DAILY 06/01/24 mental health #45 tabs metoprolol succinate 25 mg 25 mg PO DAILY #90 tabs 06/28/24 tablet,extended release 24 hr nitroglycerin 0.4 mg sublingual 0.4 mg sublingual Q5M PRN chest 07/17/24 tablet pain 30 days #30 tabs Allergies Allergy/AdvReac Type Severity Reaction Status Date / Time cinnamon Allergy Intermediate Coughing & Verified 08/07/24 14:26 throat itching trazodone AdvReac Intermediate ADR-Depress Verified 08/07/24 14:26 ion topomax AdvReac Intermediate Depressed Uncoded 08/07/24 14:26 Unknown antibiotic AdvReac Unknown Anaphylaxis Uncoded 08/07/24 14:26 Review of Systems 2 Narrative: Constitutional symptoms: Negative except as documented in HPI. Skin symptoms: Negative except as documented in HPI. Eye symptoms: Negative except as documented in HPI. ENMT symptoms: Negative except as documented in HPI. Respiratory symptoms: Negative except as documented in HPI. Cardiovascular symptoms: Negative except as documented in HPI. Gastrointestinal symptoms: Negative except as documented in HPI. Genitourinary symptoms: Negative except as documented in HPI. Musculoskeletal symptoms: Negative except as documented in HPI. Neurologic symptoms: Negative except as documented in HPI. Psychiatric symptoms: Negative except as documented in HPI. Endocrine symptoms: Negative except as documented in HPI. PFSH ED 2 PFSH: Medical History DDD (degenerative disc disease), lumbar Allergic rhinitis due to allergen Reactive airway disease without asthma Pre-diabetes HgbA1C 5.8 08/23/2023 Hx of cataract left eye CAD (coronary artery disease) mild to moderate disease by coronary CTA with negative CT FFR [facility] Essential hypertension Mixed dyslipidemia Postural hypotension Psychiatric care Generalized anxiety disorder Major depressive disorder, recurrent, mild Surgical History S/P shoulder replacement Family History Father FH: carotid endarterectomy Hypertension Carotid artery stenosis Mother Headache Hypertension Brother Myocardial infarction Hypertension Grandfather Stroke Family/Other Psychiatric diagnosis Social History Smoking and tobacco/nicotine status: former use of tobacco/nicotine (quit 40 years ago) Quit status (tobacco/nicotine): has quit using Year quit tobacco: 1979 Second hand smoke exposure: Yes Alcohol intake: current Alcohol intake frequency: holidays/special occasions only Alcohol type: beer and wine Substance/Drug Use: never Current gender identity: Female Physical Exam 2 Narrative: EXAM NARRATIVE: General: Alert, no acute distress. Skin: Warm, dry. Head: Normocephalic, atraumatic. Neck: Supple, trachea midline. Eye: Extraocular movements are intact. Ears, nose, mouth and throat: mucosa moist. Cardiovascular: Regular, Normal peripheral perfusion. Respiratory: Lungs are clear to auscultation, respirations are non-labored, breath sounds are equal, Symmetrical chest wall expansion. Gastrointestinal: Soft, Nontender, Non distended Musculoskeletal: Normal ROM, no deformity. Neurological: Alert and oriented, No focal neurological deficit observed. Psychiatric: Cooperative, appropriate mood & affect. Course 2 Vital Signs: Vital signs: Vital Signs Temperature 98.0 F 08/07/24 14:20 Pulse Rate 56 L 08/07/24 18:00 Respiratory Rate 16 08/07/24 18:00 Blood Pressure 174/79 08/07/24 18:00 Pulse Oximetry 95 08/07/24 18:00 Oxygen Delivery Nm thod Room Air 08/07/24 17:39 MDM - Chest Pain Medical Decision Making Patient care transitioned to mo at shift change from Dr. Wheatley. Differential diagnosis for patient with chest pain includes but is not limited to and based on the above HPI, review of systems and physical exam: Pneumonia. unstable angina. angina. Acute coronary syndrome / CT. Pulmonary embolism. Costochondritis / musculoskeletal. Pleurisy. Pericarditis. Esophageal spasm. Pancreatis. Cholecystitis. Orders placed to evaluate differential diagnosis based on the above differential, HPI and physical exam Chest x-ray: No acute process. No infiltrate. No pneumothorax. This was reviewed and interpreted by myself the ER physician. EKG: Time 1627. Rate 65. Normal sinus rhythm, No ST-T changes, no ectopy, normal CA & QRS intervals, This was reviewed and interpreted by myself the ER physician at 1630. Lab Review: Laboratory results were reviewed and interpreted by myself the emergency room physician. Lab work is unremarkable. No leukocytosis. No anemia. No renal failure. BUN and creatinine are 16 and 0.8. Serial cardiac markers are negative. Assessment and plan: Noncardiac chest pain - Discharged home - Discussed findings and plan with patient. Answered any questions. - All laboratory values were reviewed and interpreted personally by myself, the ER physician - All imaging was reviewed and interpreted personally by myself, the ER physician. - Evaluation and treatment of this problem were appropriate in the emergency setting Lab Data 08/07/24 14:50 08/07/24 14:50 Radiology Impressions Chest X-Ray 08/07/24 14:19 IMPRESSION: No acute findings. Laboratory Results WBC 6.52 10^3/uL (3.29-11.43) 08/07/24 14:50 RBC 4.32 10^6/uL (3.85-5.65) 08/07/24 14:50 Hgb 12.70 g/dL (11.27-16.99) 08/07/24 14:50 Hct 40.3 % (36-47) 08/07/24 14:50 MCV 93.3 fl (85-98) 08/07/24 14:50 MCH 29.4 pg (27-33) 08/07/24 14:50 MCHC 31.5 g/dL (30-55) 08/07/24 14:50 RDW 13.2 % (12.1-15.1) 08/07/24 14:50 Plt Count 201 10^3/cmm (157-399) 08/07/24 14:50 MPV 9.1 fL (7.4-10.4) 08/07/24 14:50 Neut % (Auto) 64.2 % 08/07/24 14:50 Lymph % (Auto) 25.6 % 08/07/24 14:50 [place] % (Auto) 7.5 % 08/07/24 14:50 Eos % (Auto) 2.1 % 08/07/24 14:50 Baso % (Auto) 0.3 % 08/07/24 14:50 Neut # (Auto) 4.18 10^3/uL (1.8-7.7) 08/07/24 14:50 Lymph # (Auto) 1.7 10^3/uL (0.8-4.8) 08/07/24 14:50 [place] # (Auto) 0.5 10^3/uL (0.2-0.9) 08/07/24 14:50 Eos # (Auto) 0.1 10^3/uL (0.0-0.8) 08/07/24 14:50 Baso # (Auto) 0.0 10^3/uL (0.0-0.1) 08/07/24 14:50 Nucleated RBC % (auto) 0 % 08/07/24 14:50 Nucleated RBCs # 0.0 /100WBC 08/07/24 14:50 Sodium 139 mmol/L (136-145) 08/07/24 14:50 Potassium 3.8 mmol/L (3.5-5.1) 08/07/24 14:50 Chloride 101 mmol/L (98-107) 08/07/24 14:50 Carbon Dioxide 28 mmol/L (22-29) 08/07/24 14:50 Anion Gap 13.8 (5-19) 08/07/24 14:50 BUN 16 mg/dL (8-23) 08/07/24 14:50 Creatinine 0.8 mg/dL (0.5-0.9) 08/07/24 14:50 GFR Calculation Not Reportable 08/07/24 14:50 Glucose 101 mg/dL (65-115) 08/07/24 14:50 Calculated Osmolality 289 mOsm/kg (285-295) 08/07/24 14:50 Calcium 9.0 mg/dL (8.5-10.5) 08/07/24 14:50 Total Bilirubin 0.5 mg/dL (0.15-1.2) 08/07/24 14:50 AST 20 U/L (0-32) 08/07/24 14:50 ALT 14 U/L (0-33) 08/07/24 14:50 Alkaline Phosphatase 68 U/L (35-105) 08/07/24 14:50 Troponin T Baseline 7 ng/L (0-10) 08/07/24 14:50 Troponin T 120 Minute 7.80 ng/L (0-10) 08/07/24 16:48 Delta Troponin T 0.80 ABS# (0-10) 08/07/24 16:48 Total Protein 7.0 g/dL (6.6-8.7) 08/07/24 14:50 Albumin 4.6 g/dL (3.5-5.2) 08/07/24 14:50 Globulin 2.4 g/dL (1.3-4.6) 08/07/24 14:50 Lipase 39 U/L (13-60) 08/07/24 14:50 All radiology interpretation(s) finalized by discharge Discharge Plan Discharge Patient Disposition: Home Clinical Impression: Non-cardiac chest pain Condition: Stable Prescriptions: No Action cholecalciferol (vitamin D3) 250 mcg (10,000 unit) tablet 1,000 mcg PO DAILY geriatric upwkfege-yphz-kceq Tablet 1 tab PO DAILY acetaminophen 500 mg capsule 500 mg PO QID PRN (Reason: fever or pain) magnesium 250 mg tablet 250 mg PO DAILY sertraline [Zoloft] 100 mg tablet 150 mg PO DAILY Qty: 45 2RF nitroglycerin 0.4 mg tablet, sublingual 0.4 mg sublingual Q5M PRN (Reason: chest pain) 30 Days Qty: 30 3RF Rx Instructions: until response; do not exceed 3 doses per episode melatonin 3 mg capsule 3 mg PO DAILY atorvastatin 40 mg tablet 40 mg PO DAILY Qty: 90 3RF losartan 50 mg tablet 50 mg PO DAILY Qty: 90 2RF Rx Instructions: Filled for Dr. Johnson while he is out of clinic. albuterol sulfate 90 mcg/actuation HFA aerosol inhaler 1 inh inhalation QID PRN (Reason: shortness of breath or wheezing) Qty: 8.5 5RF amlodipine 5 mg tablet 5 mg PO DAILY Qty: 90 1RF metoprolol succinate 25 mg tablet extended release 24 hr 25 mg PO DAILY Qty: 90 3RF Discharge Orders: Discharge ED (Routine); Ordered 08/07/24 Ordered By: Tamia Stafford Referrals: Nikolay Johnson MD [Primary Care Provider] - Rachel Cornelius MD [Family Provider] - Discharge Diet: Usual diet Discharge Activity: Increase activity as tolerated Patient Instructions: Noncardiac Chest Pain (ED) Activity Restrictions/Additional Instructions: Thank you for choosing [facility] for your healthcare needs today. Please realize this is an emergency room and that we are providing you with a medical screening exam and this may not be complete and all inclusive of all the testing and or work up that you may need to determine your ailment or severity of your illness. You have been screened and evaluated and felt safe for discharge. Health conditions do change or evolve sometimes and as such it is important that you follow up with your Primary Doctor to be re checked, 3-5 days is a general good time frame for follow up. You are always welcome to return to the ED for re assessment if your symptoms are worsening or you have new concerns Coding Level of Care Code ED Auxiliary Powerplant Operator for Zane Navas
--- NOTE | 2024-08-07 16:27 | ECG_ITS ---
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 Measurements Intervals [place] Rate: 65 P: 71 MD: 183 QRS: 35 QRSD: 77 T: 52 QT: 367 QTc: 383 Interpretive Statements SINUS RHYTHM LOW QRS VOLTAGE IN PRECORDIAL LEADS [QRS DEFLECTION < 1.0 mV IN CHEST LEADS] Compared to ECG 08/07/2024 14:18:58 ST (T wave) deviation no longer present Myocardial infarct finding no longer present Electronically Signed On 08-07-2024 16:55:12 CDT by Lucas Cai M.D. [id number]
[2024-08-07 16:45] VITALS: BP 140/102
[2024-08-07 17:39] VITALS: BP 152/73; PULSE 54; RESP 15; O2SAT 97
[2024-08-07 18:00] VITALS: BP 174/79; PULSE 56; RESP 16; O2SAT 95
== END 2024-08-07 18:04 | disposition home or self-care (01) ==
PROVIDERS: Emergency Medicine; Absent Provider Nurse Practitioner Family; Emergency Provider Emergency Medicine; Family Provider Internal Medicine Cardiovascular Disease; PCP Family Medicine Adult Medicine
DX: R07.89 Other chest pain (principal); I25.10 Atherosclerotic heart disease of native coronary artery without angina pectoris; I10 Essential (primary) hypertension; E78.2 Mixed hyperlipidemia; Z87.891 Personal history of nicotine dependence
CPT/HCPCS: 36415; 71045; 80053; 83690; 84484; 85025; 93005; 99285

== ENCOUNTER 2024-08-10 08:56 | Outpatient (CLI) | payer MEDICARE, OTHER, SELFPAY ==
[2024-08-10] VITALS (26 sets, daily range): BP systolic 97–158; BP diastolic 49–89; PULSE 52–74; RESP 16–33; TEMP 36.7–36.8; O2SAT 91–97; BMI 25.0
[2024-08-10] MEDS: diphenhydrAMINE 50 mg Capsule PO (09:15)
[2024-08-10] MEDS: aspirin 325 mg Tablet PO (09:15)
--- NOTE | 2024-08-10 09:33 | W.PM.OPSUD ---
Surgery/Procedure H&P Update DATE OF PROCEDURE: August 10, 2024 DATE H&P PERFORMED: 07/17/24 H&P UPDATE INFORMATION: I have reviewed H&P completed within last 30 days, I have examined patient prior to procedure and No changes to prior documentation PREOP DIAGNOSIS: ASHD PRIMARY INDICATION FOR PROCEDURE: Chest pain, high blood pressure, dyslipidemia, abnormal Myocardial perfusion imaging PLANNED PROCEDURE: Operation Date: 08/10/24 10:00 Proposed Procedures p Cardiac Catheterization(Left) - Rachel Cornelius MD PATIENT REASSESSED PRIOR TO SEDATION, WITH NO CHANGE NOTED: Yes PHYSICAL EXAM: alert, oriented x 3, clear to auscultation bilaterally and regular rate & rhythm AIRWAY EVAL/ANESTHESIA PLAN: normal airway, see other exam findings, ASA III, Monitored Anesthesia, Local Anesthesia, Risks, benefits & alternatives of sedation and/or procedure discussed and Patient agrees to continue as planned
--- NOTE | 2024-08-10 10:00 | XACV_ITS ---
Exam Room: 2 Ht: 157 cm Wt: 62 kg BSA: 1.66 m2 Gender: Female : 1955 Any Known Allergies: Other Exam Priority: Routine Procedure(s): Procedure Description: Diagnostic procedure Procedure Description: PCI procedure Procedure Description: Left Heart Catheterization Procedure Description: Left ventriculography Procedure Description: Drug Eluting Coronary Stent Procedure Description: PTCA Procedure Description: Miscellaneous Procedure Description: Angio-Seal Procedure Description: ACT Procedure Description: Coronary Angiography Procedure Description: Pressure Wire Adryan SALAZAR; Diagnostic Cath Status: Elective Diagnostic Findings * The left main is a medium caliber vessel with no significant stenotic lesions. * The left anterior descending artery is a medium caliber vessel which appears to wraparound the LV apex minimally. The proximal to the mid LAD was found to have moderate diffuse disease ranging from 40 to 60%. Some haziness was noted around the first septal lock technician. The distal LAD was found to have minimal intimal irregularities. The first diagonal branch was found to have an ostial narrowing of around 50%. No other significant stenotic lesions were seen. * The left circumflex artery is a medium caliber vessel which was found to have around 40% tubular narrowing proximally. No significant stenotic lesions were seen. * There is a small intermedius artery appears to be a high diagonal vessel with no significant stenotic lesions. * The right coronary artery is a medium to large caliber dominant vessel which was found to have diffuse irregular narrowing of 30 to 50% in the proximal segment. The mid and distal artery was found to have no significant stenotic lesions. PCI Status: Elective PCI Indication: Other Interventional Findings * Proximal Left Anterior Descendin-60% stenosis treated with a MDT R OBED 3.0X26 AISLINN, and MDT NC EUPHORA RX 3.56V75PS BALLOON. 0% residual stenosis, MEÑO: 3 flow. * Mid Left Anterior Descendin- 70% stenosis treated with a AB TREK 2.75X30 RX BALLOON, MDT R OBED 2.75X30 AISLINN, and MDT NC EUPHORA RX 3.77E81HR BALLOON. 0% residual stenosis, MEÑO: 3 flow. * Procedure detail: We engaged left main artery with XB 3.5 guide catheter. IV heparin was administered to maintain anticoagulation. After normalization, IFR wire was advanced into the distal LAD. iFR value of 0.86 was obtained that was significantly abnormal. We predilated the mid LAD stenosis with 2.75 x 30 mm semicompliant balloon. This was followed by placement of 2.75 x 30 mm resolute [place] drug-eluting stent. Proximal to the stent there was residual stenosis and an overlapping stent measuring 3.0 x 26 mm resolute [place] drug-eluting stent. We then postdilated the stents with 3.25 x 27 mm NC balloon. At this time final angiogram was performed that showed excellent stent expansion, no residual stenosis and MEÑO-3 flow. Guidewire and guide catheter were removed. Patient left the Implementation Architect in stable condition.. Conclusions 1. This 69-year-old white female with a history of hypertension and dyslipidemia, presenting with complaints of recurrent episodes of chest pain. She had an abnormal Myocardial perfusion imaging which revealed a small area of ischemia in the anteroapical region. The study was done in December of this year in [facility]. Because of the patient's ongoing symptoms and the risk factors, in order to further evaluate the coronary status, a cardiac catheterization was recommended. She underwent left heart catheterization with left and right coronary angiogram and LV angiogram today. The findings are as follows.. 2. Moderately severe diffuse disease in the proximal to mid LAD. Mild disease in the proximal circumflex artery. Mild diffuse disease in the proximal right coronary artery. Normal LV ejection fraction of 50%. Features of a left ventricular diastolic dysfunction with an LVEDP of 26 mmHg. 3. I reviewed and discussed the cardiac catheterization data with Dr. Cai. In view of the patient's symptoms and the abnormal Myocardial perfusion imaging, it was thought to be appropriate to consider IFR of the LAD lesions and then decide on management. So Dr. Cai took over further management of this patient at this point. 4. Abnormal IFR of proximal to mid LAD. Status post successful revascularization with 2 stents. . 5. Proximal Left Anterior Descending was treated with a Drug Eluting Stent, and Balloon. 6. Mid Left Anterior Descending was treated with a Balloon, Drug Eluting Stent, and Balloon. Recommendations * Dual antiplatelet therapy with aspirin and plavix. * High intensity statin therapy. * Outpatient cardiology follow up in 2 weeks. Interventional RX Recommendation: PCI w/o planned CABG Diagnostic RX Recommendation: other cardiac therapy w/o CABG/PCI Anticoagulation: Heparin Ventriculography Ejection Fraction: 50.0 % LV EDP: 25 mmHg Left Ventriculography Findings: * The LV gram was performed the CURTIS projection. The LV cavity appeared to be normal size. LV ejection fraction was around 50%. No filling defects were noted. No significant mitral prolapse or mitral regurgitation. The LVEDP was 25 mmHg. Pressures Phase:Rest AO : 162 / 81 ( 115 ) @ 11:14:00 AM 166 / 69 ( 106 ) @ 11:22:00 AM 169 / 90 ( 124 ) @ 11:28:00 AM 164 / 94 ( 123 ) @ 11:28:00 AM 137 / 89 ( 109 ) @ 11:36:00 AM 137 / 73 ( 100 ) @ 11:42:00 AM 77 / 52 ( 63 ) @ 11:51:00 AM 123 / 87 ( 102 ) @ 11:56:00 AM 132 / 92 ( 110 ) @ 11:57:00 AM LV : 167 / 19 / 33 @ 11:24:00 AM 149 / 25 / 25 @ 11:26:00 AM 159 / 23 / 24 @ 11:27:00 AM 147 / 21 / 24 @ 11:27:00 AM 147 / 20 / 57 @ 11:28:00 AM Valves Phase:DefaultPhase AV : 0.0 @ 11:08:20 AM 0.0 @ 11:08:20 AM AV Mean Gradient: 0.0 @ 11:08:20 AM Clinical Evaluation EBL: 5mL-10mL Procedural Details Procedure Consent Obtained. Pre-Procedure Time Out. Identified patient by full name and date of as verbalized by the patient/guarantor. Does the consent match the physician's order: Yes. Accurate & Complete Informed Consent: Yes. Inpatient/Outpatient History & Physical on Chart: Yes. If H&P is completed, is and addenduem needed: No; If yes, is the addendum complete: N/A. Visualize and Verify Site with Patient/Guarantor: N/A. Relevant Radiology Images available: Yes. Pre-op teaching completed and patient verbalized understanding. The risks, benefits, and alternatives of sedation and/or procedure were discussed by physician. The patient agrees to continue. Procedure started. Physician arrived. Current Diagnosis : Chest Pain. [facility] Clinical Fraility Score: 3: Managing Well. Implementation Architect Indications: Worsening Angina. Chest Pain Symptom Assessment: Atypical Angina. Correct patient, site and procedure confirmed by cath team. Current diagnosis: Chest Pain. PERRLA. Strong, equal hand mailer apprentice bilaterally. Lungs clear x 5 lobes. IV Site on Arrival: 20 gauge in the right anticubital. IV Fluids: 0.9% NaCl at KVO. 0 mL infused prior to clinical lab clerk. Pre Procedural Pulses: bilateral dorsalis pedis was 3+. Pre Procedural Pulses: bilateral posterior tibial was 3+. Pre Procedural Pulses: bilateral radial was 3+. Oxygen started at 2liters/min via nasal canula. right groin was prepped with chloroprep then draped in the usual sterile fashion. right radial was prepped with chloroprep then draped in the usual sterile fashion. Baseline sample Acquired. HR: 63 BPM. Physician scrubbed in. Immediate Pre-Procedure Time Out. Correct Patient: Yes; Correct Procedure: Yes; Correct Site: Yes; Correct Patient Position: Yes; Correct Supplies: Yes; Dried Flammable Prep: Yes; Blood Products Available: N/A;. Lidocaine 1% infiltrated to the right radial. Arterial access obtained. Sheath removed. Manual pressure held on access site. A TR Band was successful obtaining hemostatsis at the Right Radial artery insertion site. Lidocaine 1% infiltrated to the right groin. Arterial access obtained with micropuncture set. A 5 [place] JL4 catheter in over wire. Multiple views taken of left coronary artery. Catheter removed over the standard wire. A 5 [place] JR4 catheter in over wire. Multiple views taken of right coronary artery. Dr. Cai called to review films. Catheter removed over the standard wire. A 5 [place] Angled Pig catheter in over wire. Dr. Cai arrived. EDP Sample taken: LV 167/19,33; HR: 73 BPM; SpO2: 98%. LV gram performed in CURTIS @ 10 mL/second for a total of 30 mL. EDP Sample taken: LV 149/25,25; HR: 68 BPM; SpO2: 98%. Pullback taken: LV Off; AO Off; Mean: , Peak to Peak: , SEP: ; HR: 74 BPM; SpO2: 97%. EDP Sample taken: LV 159/23,24; HR: 69 BPM; SpO2: 98%. EDP Sample taken: LV 147/21,24; HR: 70 BPM; SpO2: 98%. Pullback taken: LV 147/20,57; AO 169/90(124); Mean: 0mmHg, Peak to Peak: 0mmHg, SEP: 4sec/min; HR: 73 BPM; SpO2: 99%. Catheter removed over the exchange wire. Physician scrubbed out. Dr. Cai scrubbed in to perform intervention. 6 [place] XB 3.5 guide catheter was inserted over the wire. IFR guidewire was advanced through the guide catheter to lesion in the LAD. IFR Results: 0.86. Runthrough guidewire was advanced through the guide catheter to lesion in the mid LAD. ACT drawn. Results 369 seconds. Therapeutic limits - pre-heparin administration 90-150 seconds and monitoring heparin during a vascular procedure >250 seconds. IFR wire removed. Inflation number : 1 A AB TREK 2.75X30 RX BALLOON was prepped and advanced across the Mid LAD , then inflated to 10 GREGORIO for 0:14 seconds. Inflation number: 2 The AB TREK 2.75X30 RX BALLOON was reinflated across the Mid LAD, to 10 GREGORIO for 0:16 seconds. Balloon out. Inflation Number : 3 A MDT R OBED 2.75X30 AISLINN -Lot Number# _[id number] EXP: 01/11/2025 was prepped and advanced across the Mid LAD. The stent was deployed at 12 GREGORIO for 0:20 seconds. Stent balloon out over wire. Inflation Number : 1 A MDT R OBED 3.0X26 AISLINN -Lot Number# _[id number] EXP: 12/05/2026 was prepped and advanced across the Prox LAD. The stent was deployed at 14 GREGORIO for 0:14 seconds. Stent balloon out over wire. Results checked. Inflation number : 4 A MDT NC EUPHORA RX 3.10C74LD BALLOON was prepped and advanced across the Mid LAD , then inflated to 18 GREGORIO for 0:21 seconds. Inflation number: 2 The MDT NC EUPHORA RX 3.60S80PT BALLOON was reinflated across the Prox LAD, to 20 GREGORIO for 0:18 seconds. Balloon out. Results checked. Wire out. ACT drawn. Results out of range high seconds. Therapeutic limits - pre-heparin administration 90-150 seconds and monitoring heparin during a vascular procedure >250 seconds. Guide catheter out. A Right femoral angiogram was performed to determine safe placement of closure device. Lidocaine 1% infiltrated to the right groin. A Angio-Seal VIP ([place]) was successful obtaining hemostatsis at the Right Femoral artery insertion site. Post Procedure: Pulses reassessed and unchanged. PERRLA. Strong, equal hand mailer apprentice bilaterally. No VTE prophylaxis required. Total IV fluids: 95 mL. Vital chart was stopped. Post-op diagnosis: Stent to LAD. Complications: None. Estimated blood loss: 5mL-10mL. Responsiveness - Normal response to verbal stimuli; alert and oriented, PERRLA. Airway - Unaffected, no intervention required; spontaneous ventilation. Circulation: W/N/L, pulses unchanged. Nausea/Vomiting: No. Procedure completed. Patient transferred by bed to 1st floor. Access Site Site: Right Radial artery Sheath Size: 6 Fr Hemostasis Method: TR Band Hemostasis Success: Successful Site: Right Femoral artery Sheath Size: 6 Fr Hemostasis Method: Angio-Seal VIP ([facility]) Hemostasis Success: Successful Procedure Medications Start: 9:55 AM Stop: 9:55 AM Medication: Versed Amount: 1 mg Route: I.V. Start: 9:55 AM Stop: 9:55 AM Medication: Fentanyl Amount: 50 mcg Route: I.V. Start: 10:02 AM Stop: 10:02 AM Medication: Verapamil Amount: 5 mg Route: I.A. Start: 10:03 AM Stop: 10:03 AM Medication: Versed Amount: 1 mg Route: I.V. Start: 10:11 AM Stop: 10:11 AM Medication: Fentanyl Amount: 25 mcg Route: I.V. Start: 10:15 AM Stop: 10:15 AM Medication: Heparin Amount: 1500 units Route: I.V. Start: 10:22 AM Stop: 10:22 AM Medication: Lopressor (metoprolol) Amount: 5 mg Route: I.V. Start: 10:34 AM Stop: 10:34 AM Medication: Fentanyl Amount: 25 mcg Route: I.V. Start: 10:35 AM Stop: 10:35 AM Medication: Heparin Amount: 4000 units Route: I.V. Start: 10:36 AM Stop: 10:36 AM Medication: Versed Amount: 1 mg Route: I.V. Start: 10:57 AM Stop: 10:57 AM Medication: Plavix Amount: 600 mg Route: P.O. I, the attending physician, have reviewed and verified all procedure medications. Yes, all medications given per verbal order History/Risk Factors Hypertension: Yes Dyslipidemia: Yes Peripheral Arterial Disease (PAD): No Myocardial Infarction (ME): No Obesity: No Renal Disease: No Tobacco Use: Former Prior Interventions PCI: No CABG: No Valve Surgery: No Report Signatures Interventional Workflow Finalized by Lucas Cai MD on 08/17/2024 01:39 PM Diagnostic Workflow Finalized by Dr Rachel Cornelius MD [facility] on 08/10/2024 06:13 PM
--- NOTE | 2024-08-10 15:42 | PC.NURSE ---
Initiated TR Band removal at 1210 removing 2ml of air every 15-20min until band off at this time. No s/s of recurrent bleeding or hematoma formation observed. Cleaned site and covered with 2x2 and coban. Right groin dressing remains c,d,i without s/s of bleeding or hematoma formation observed. Instructed patient on site care and restrictions. Patient verbalized complete understanding. Patient up to ambulate to BR at this time. Still no s/s of bleeding. Will continue to monitor.
[2024-08-11] VITALS (7 sets, daily range): BP systolic 116–154; BP diastolic 58–78; PULSE 60–96; RESP 15–27; TEMP 36.6–36.8; O2SAT 92–97
[2024-08-11 07:52] LABS: Basophils % 0.3 %; Eosinophils # 0.1 10^3/uL (0.0-0.8); Eosinophils % 1.8 %; Hematocrit 39.4 % (36-47); Lymphocytes # 2.3 10^3/uL (0.8-4.8); Lymphocytes % 30.6 %; Mean Corpuscular Hemoglobin 29.3 pg (27-33); Mean Corpuscular Volume 91.6 fl (85-98); Mean Platelet Volume 8.8 fL (7.4-10.4); Monocytes # 0.6 10^3/uL (0.2-0.9); Monocytes % 7.2 %; Neutrophils # 4.59 10^3/uL (1.8-7.7); Nucleated Red Blood Cells % 0 %; Platelet Count 181 10^3/cmm (157-399); Red Cell Distribution Width 13.1 % (12.1-15.1); White Blood Count 7.65 10^3/uL (3.29-11.43)
[2024-08-11 08:10] LABS: Anion Gap 14.9 (5-19); Blood Urea Nitrogen 12 mg/dL (8-23); Calcium 8.8 mg/dL (8.5-10.5); Carbon Dioxide 26 mmol/L (22-29); Chloride 101 mmol/L (98-107); Creatinine Clr Calc Pharmacy 57.8761; Glucose 93 mg/dL (65-115); Osmolality Calculated 285 mOsm/kg (285-295); Potassium 3.9 mmol/L (3.5-5.1); Sodium 138 mmol/L (136-145)
--- NOTE | 2024-08-11 08:35 | P.DS_ITS ---
Discharge Providers Date of Admission: 08/10/24 11:30 Date of Discharge: August 11, 2024 Attending Provider at Admission: Rachel Cornelius MD Attending Provider at Discharge: Rachel Cornelius MD Primary Care Provider: Nikolay Johnson MD Reason for Visit Reason for Visit: I25.118 Brief History: 69-year-old woman who has been having th e chest pain symptoms. Coronary angiogram was performed as had recent abnormal stress test Hospital Course Hospital Course Coronary angiogram demonstrated moderate appearing proximal to mid LAD stenosis. iFR was abnormal. She had successful vascularization with 2 stents. Patient was observed overnight and stayed stable. Was discharged home in stable condition on aspirin and Plavix. Physical Exam Narrative: GENERAL: Patient is alert, awake and oriented x3. [] NECK: No jugular vein distension. [] HEENT: No cyanosis. No icterus. No pallor. [] HEART: Regular S1 and S2. No murmur, rub or gallop. [] LUNGS: Clear to auscultate bilaterally. [] CENTRAL NERVOUS SYSTEM: Grossly nonfocal. [] EXTREMITIES: Lower extremities with 1+ edema bilaterally Discharge Data Studies Completed and Pending Pending at discharge Category Date Time Status EMISSIONS INSPECTOR request for service Routine Exams 08/10/24 10:00 Taken Laboratory Results WBC 7.65 10^3/uL (3.29-11.43) 08/11/24 07:29 RBC 4.30 10^6/uL (3.85-5.65) 08/11/24 07:29 Hgb 12.60 g/dL (11.27-16.99) 08/11/24 07:29 Hct 39.4 % (36-47) 08/11/24 07:29 MCV 91.6 fl (85-98) 08/11/24 07:29 MCH 29.3 pg (27-33) 08/11/24 07: MCHC 32.0 g/dL (30-55) 08/11/24 07:29 RDW 13.1 % (12.1-15.1) 08/11/24 07:29 Plt Count 181 10^3/cmm (157-399) 08/11/24 07:29 MPV 8.8 fL (7.4-10.4) 08/11/24 07:29 Neut % (Auto) 60.0 % 08/11/24 07: Lymph % (Auto) 30.6 % 08/11/24 07:29 [place] % (Auto) 7.2 % 08/11/24 07: Eos % (Auto) 1.8 % 08/11/24 07:29 Baso % (Auto) 0.3 % 08/11/24 07:29 Neut # (Auto) 4.59 10^3/uL (1.8-7.7) 08/11/24 07: Lymph # (Auto) 2.3 10^3/uL (0.8-4.8) 08/11/24 07:29 [place] # (Auto) 0.6 10^3/uL (0.2-0.9) 08/11/24 07: Eos # (Auto) 0.1 10^3/uL (0.0-0.8) 08/11/24 07: Baso # (Auto) 0.0 10^3/uL (0.0-0.1) 08/11/24 07:29 Nucleated RBC % (auto) 0 % 08/11/24 07: Nucleated RBCs # 0.0 /100WBC 08/11/24 07:29 Sodium 138 mmol/L (136-145) 08/11/24 07:29 Potassium 3.9 mmol/L (3.5-5.1) 08/11/24 07: Chloride 101 mmol/L (98-107) 08/11/24 07:29 Carbon Dioxide 26 mmol/L (22-29) 08/11/24 07:29 Anion Gap 14.9 (5-19) 08/11/24 07:29 BUN 12 mg/dL (8-23) 08/11/24 07:29 Creatinine 0.8 mg/dL (0.5-0.9) 08/11/24 07:29 GFR Calculation Not Reportable 08/11/24 07:29 Glucose 93 mg/dL (65-115) 08/11/24 07:29 Calculated Osmolality 285 mOsm/kg (285-295) 08/11/24 07:29 Calcium 8.8 mg/dL (8.5-10.5) 08/11/24 07:29 Vitals Last Vital Signs Temp 98.3 F 08/11/24 08:00 Pulse 67 08/11/24 08:00 Resp 27 H 08/11/24 08:00 BP 154/60 08/11/24 08:00 Pulse Ox 97 08/11/24 08:00 O2 Del Method Room Air 08/11/24 08:00 Discharge Plan Discharge Patient Disposition: Home Condition: Stable Prescriptions: New clopidogrel 75 mg Tablet 75 mg PO DAILY Qty: 90 3RF aspirin 81 mg Tablet,Delayed Release (Dr/Ec) 81 mg PO DAILY Qty: 90 3RF Continued cholecalciferol (vitamin D3) 250 mcg (10,000 unit) tablet 1,000 mcg PO DAILY geriatric [id number] Tablet 1 tab PO DAILY acetaminophen 500 mg capsule 500 mg PO QID PRN (Reason: fever or pain) magnesium 250 mg tablet 250 mg PO DAILY sertraline [Zoloft] 100 mg tablet 150 mg PO DAILY Qty: 45 2RF nitroglycerin 0.4 mg tablet, sublingual 0.4 mg sublingual Q5M PRN (Reason: chest pain) 30 Days Qty: 30 3RF Rx Instructions: until response; do not exceed 3 doses per episode melatonin 3 mg capsule 3 mg PO DAILY atorvastatin 40 mg tablet 40 mg PO DAILY Qty: 90 3RF losartan 50 mg tablet 50 mg PO DAILY Qty: 90 2RF Rx Instructions: Filled for Dr. Johnson while he is out of clinic. albuterol sulfate 90 mcg/actuation HFA aerosol inhaler 1 inh inhalation QID PRN (Reason: shortness of breath or wheezing) Qty: 8.5 5RF amlodipine 5 mg tablet 5 mg PO DAILY Qty: 90 1RF metoprolol succinate 25 mg tablet extended release 24 hr 25 mg PO DAILY Qty: 90 3RF Discharge Orders: Discharge Order (Routine); Ordered 08/11/24 Ordered By: Lucas Cai Referrals: Laura Banuelos FNP [Nurse Practitioner] - 1 week (We have notified your [facility] of the need for a follow-up appointment to be scheduled. If you have not heard from them within the next 2 business days, please call them directly. ) Discharge Diet: Cardiac Discharge Activity: Increase activity as tolerated Patient Instructions: Aspirin (By mouth), Clopidogrel (By mouth), Chest Pain (DC), Opioid Safety, Post Angiogram Home Care Instructions Discharge Attestations Time Spent in Discharge Care*: less than 30 min Quality Metrics Clinical Quality Measures [ No reported AMI, CVA or VTE this stay] Coding Level of Care Code Acute Code for Chg Fwd
[2024-08-11] MEDS: atorvastatin 40 mg Tablet PO (09:16)
[2024-08-11] MEDS: magnesium oxide 400 mg tablet PO (09:16)
[2024-08-11] MEDS: cholecalciferol (vitamin D3) 1,000 unit Tablet 1000 UNIT PO (09:16)
[2024-08-11] MEDS: clopidogrel 75 mg Tablet PO (09:16)
[2024-08-11] MEDS: amlodipine 5 mg Tablet PO (09:16)
[2024-08-11] MEDS: losartan 50 mg Tablet PO (09:16)
[2024-08-11] MEDS: metoprolol succinate ER (24 HR) 25 mg Tablet PO (09:17)
[2024-08-11] MEDS: sertraline 100 mg Tablet 150 MG PO (09:17)
[2024-08-11] MEDS: aspirin 81 mg EC Tablet PO (09:17)
[2024-08-11] MEDS: multivitamin therapeutic Tablet 1 TAB PO (09:17)
--- NOTE | 2024-08-11 11:49 | PC.NURSE ---
DISCHARGE INSTRUCTIONS GIVEN AND EXPLAINED.PT VERB UNDERSTANDING OF INSTRUCTIONS.DISCHARGED VIA W/C TO EXIT.SON TO DRIVE PT HOME
== END 2024-08-12 04:22 | disposition home or self-care (01) ==
LOC: CCL 09:00 → CSU 08-11 08:35
PROVIDERS: Internal Medicine; PCP Family Medicine Adult Medicine; Visit Provider Internal Medicine Cardiovascular Disease
DX: I25.118 Atherosclerotic heart disease of native coronary artery with other forms of angina pectoris (principal); I10 Essential (primary) hypertension; E78.2 Mixed hyperlipidemia; F41.1 Generalized anxiety disorder; F33.0 Major depressive disorder, recurrent, mild; Z87.891 Personal history of nicotine dependence
CPT/HCPCS: 36415; 80048; 85025; 85347; 93458; 93571; 96374; 96375; 96376; 99152; 99153; C1725; C1760; C1769; C1874; C1887; C1894; C9600; G0269; G0378; J1644; J2250; J3010; J3490; J7030; Q0163; Q9967

== ENCOUNTER 2024-08-15 14:29 | Emergency (ER) | payer MEDICARE, OTHER, SELFPAY ==
--- NOTE | 2024-08-15 14:31 | XRR_ITS ---
PROCEDURE INFORMATION: Exam: XR Chest Exam date and time: 08/15/2024 3:34 PM Age: 69 years old Clinical indication: Shortness of breath; Additional info: SOB TECHNIQUE: Imaging protocol: Radiologic exam of the chest. Views: 1 view. COMPARISON: CR XR chest 1V portable [id number] 08/07/2024 2:30 PM FINDINGS: Lungs: The lungs are clear. Pleural spaces: No pneumothorax or pleural effusion. Heart/Mediastinum: Heart size upper limits of normal. Coronary vessel stent noted. Mediastinal contours unremarkable. Bones/joints: No acute osseous or soft tissue abnormality. Left shoulder arthroplasty without appreciable hardware complication. XR/XR chest 1V portable [id number] IMPRESSION: 1. No acute cardiopulmonary abnormality. 2. Heart size upper limits of normal.
--- NOTE | 2024-08-15 14:35 | ECG_ITS ---
[facility] Test Date: 2024-08-15 Pat Name: Petrona Esquivel Department: Room: Gender: Female Sword Swallower: : 1955 Requested By: Servando Warren Order Number: [id number] William MD: Rachel Cornelius M.D. Measurements Intervals Colman Rate: 69 P: 44 CO: 158 QRS: 30 QRSD: 72 T: 47 QT: 338 QTc: 363 Interpretive Statements SINUS RHYTHM Compared to ECG 08/07/2024 16:27:54 No significant changes Electronically Signed On 08-15-2024 23:28:41 CDT by Rachel Cornelius M.D. [email or web address]
[2024-08-15 14:42] VITALS: BP 137/65; PULSE 74; RESP 16; TEMP 36.8; O2SAT 97
[2024-08-15 15:29] VITALS: BP 156/66; PULSE 67; RESP 17; TEMP 36.8; O2SAT 100
--- NOTE | 2024-08-15 15:32 | W.ED.ARRPALP ---
HPI - Arrhythmia/Palpitations General: Chief Complaint: Arrhythmia/Palpitations Stated Complaint: SOB, Palpitations Time Seen by Provider: 08/15/24 14:55 Source: patient Mode of arrival: ambulatory Limitations: no limitations History of Present Illness: 69-year-old female who had had 2 stents placed on Tuesday she states that she has had these episodes where she feels like her heart is racing and she can feel her heartbeat states has been going on for months she states today she had another episode where she is talking on the phone with her sister about medical issues and she had felt these palpitations she had some mild shortness of breath states that since resolved and she is back to her baseline she denies any chest pain. Associated symptoms: Deny nausea or vomiting Related Data Home Medications Medication Instructions Recorded Confirmed geriatric [id number] 1 tab PO DAILY 02/11/20 08/10/24 cholecalciferol (vitamin D3) 250 1,000 mcg PO DAILY 02/05/22 08/10/24 mcg (10,000 unit) tablet magnesium 250 mg tablet 250 mg PO DAILY 02/05/22 08/10/24 acetaminophen 500 mg capsule 500 mg PO QID PRN fever or pain 08/24/22 08/09/24 melatonin 3 mg capsule 3 mg PO DAILY 08/24/22 08/10/24 Previous Rx's Medication Instructions Recorded atorvastatin 40 mg tablet 40 mg PO DAILY cholesterol/fats 04/10/24 #90 tabs losartan 50 mg tablet 50 mg PO DAILY #90 tabs 04/10/24 albuterol sulfate 90 mcg/actuation 1 inh inhalation QID PRN shortness 04/27/24 aerosol inhaler of breath or wheezing #8.5 grams amlodipine 5 mg tablet 5 mg PO DAILY blood pressure #90 05/01/24 tabs sertraline 100 mg tablet (Zoloft) 150 mg (1.5 x 100 mg) PO DAILY 06/01/24 mental health #45 tabs metoprolol succinate 25 mg 25 mg PO DAILY #90 tabs 06/28/24 tablet,extended release 24 hr nitroglycerin 0.4 mg sublingual 0.4 mg sublingual Q5M PRN chest 07/17/24 tablet pain 30 days #30 tabs aspirin 81 mg tablet,delayed 81 mg PO DAILY #90 tabs 08/11/24 release clopidogrel 75 mg tablet 75 mg PO DAILY #90 tabs 08/11/24 Allergies Allergy/AdvReac Type Severity Reaction Status Date / Time cinnamon Allergy Intermediate Coughing & Verified 08/15/24 14:50 throat itching topiramate [From Topamax] Allergy ADR-Depress Verified 08/15/24 14:51 ion trazodone AdvReac Intermediate ADR-Depress Verified 08/15/24 14:50 ion Unknown antibiotic AdvReac Unknown Anaphylaxis Uncoded 08/15/24 14:50 Review of Systems Const: Denies: fever(s), chills, body aches or change in appetite ENMT: Denies: throat pain or dental pain Card: Reports: palpitations; Denies: chest pain Resp: Denies: dyspnea GI: Denies: abdominal pain, nausea, vomiting or diarrhea Musc: Denies: neck pain or back pain Skin/Breast: Denies: rash Neuro: Denies: headache(s) PFSH ED PFSH: Medical History DDD (degenerative disc disease), lumbar Allergic rhinitis due to allergen Reactive airway disease without asthma Pre-diabetes HgbA1C 5.8 08/23/2023 Hx of cataract left eye CAD (coronary artery disease) mild to moderate disease by coronary CTA with negative CT FFR [facility] Essential hypertension Mixed dyslipidemia Postural hypotension Psychiatric care Generalized anxiety disorder Major depressive disorder, recurrent, mild Surgical History S/P shoulder replacement Family History Father FH: carotid endarterectomy Hypertension Carotid artery stenosis Mother Headache Hypertension Brother Myocardial infarction Hypertension Grandfather Stroke Family/Other Psychiatric diagnosis Social History Smoking and tobacco/nicotine status: former use of tobacco/nicotine (quit 40 years ago) Quit status (tobacco/nicotine): has quit using Year quit tobacco: 1979 Second hand smoke exposure: Yes Alcohol intake: current Alcohol intake frequency: holidays/special occasions only Alcohol type: beer and wine Substance/Drug Use: never Current gender identity: Female Physical Exam Const: COMMON NORMALS: patient oriented x3 HENMT: COMMON NORMALS: normocephalic and atraumatic HEAD & SCALP: normocephalic and atraumatic Neck/C-Spine: COMMON NORMALS: full ROM and supple Chest: COMMONS NORMALS: normal inspection of the chest Resp: COMMON NORMALS: normal respiratory effort, No retractions, No use of accessory muscles and clear to auscultation bilaterally AUSCULTATION: clear to auscultation bilaterally Cardio: COMMON NORMALS: regular rate, regular rhythm and No murmurs present (Cardio) RATE: regular rate RHYTHM: regular rhythm Extremity: COMMON NORMALS: normal to inspection and full ROM Neuro: COMMON NORMALS: patient oriented x3, moves all extremities and no focal motor deficits Psych: COMMON NORMALS: mental status grossly normal, Normal thought process present and cooperative THOUGHT PROCESS: Normal thought process present Skin: COMMON NORMALS: no rashes or lesions noted and no wounds GENERAL SKIN EXAM: no rashes or lesions noted Course Vital Signs: Vital signs: Vital Signs Temperature 98.2 F 08/15/24 15:29 Pulse Rate 67 08/15/24 15:29 Respiratory Rate 17 08/15/24 15:29 Blood Pressure 156/66 08/15/24 15:29 Pulse Oximetry 100 08/15/24 15:29 Oxygen Delivery Me thod Room Air 08/15/24 15:29 MDM - Arrhythmia/Palpitations Medical Decision Making Patient presents with palpitations she has had some intermittent chest pains her 2-hour troponin here went down the first 1 that was elevated likely due to her recent cath on Tuesday she has no signs of acute coronary syndrome here I did speak to cardiology Dr. Caban who did the patient's cath on Tuesday feels she is stable for discharge as well we will get her follow-up with cardiology she has been well-appearing here stable for discharge Medical Records I reviewed the patient's medical records. Lab Data I reviewed the patient's lab results. 08/15/24 15:20 08/15/24 15:20 Radiology Impressions Chest X-Ray 08/15/24 14:31 IMPRESSION: 1. No acute cardiopulmonary abnormality. 2. Heart size upper limits of normal. Laboratory Results WBC 5.90 10^3/uL (3.29-11.43) 08/15/24 15:20 RBC 4.38 10^6/uL (3.85-5.65) 08/15/24 15:20 Hgb 12.90 g/dL (11.27-16.99) 08/15/24 15:20 Hct 39.7 % (36-47) 08/15/24 15:20 MCV 90.6 fl (85-98) 08/15/24 15:20 MCH 29.5 pg (27-33) 08/15/24 15:20 MCHC 32.5 g/dL (30-55) 08/15/24 15:20 RDW 13.2 % (12.1-15.1) 08/15/24 15:20 Plt Count 196 10^3/cmm (157-399) 08/15/24 15:20 MPV 9.6 fL (7.4-10.4) 08/15/24 15:20 Neut % (Auto) 62.9 % 08/15/24 15:20 Lymph % (Auto) 27.3 % 08/15/24 15:20 [place] % (Auto) 7.1 % 08/15/24 15:20 Eos % (Auto) 2.2 % 08/15/24 15:20 Baso % (Auto) 0.3 % 08/15/24 15:20 Neut # (Auto) 3.71 10^3/uL (1.8-7.7) 08/15/24 15:20 Lymph # (Auto) 1.6 10^3/uL (0.8-4.8) 08/15/24 15:20 [place] # (Auto) 0.4 10^3/uL (0.2-0.9) 08/15/24 15:20 Eos # (Auto) 0.1 10^3/uL (0.0-0.8) 08/15/24 15:20 Baso # (Auto) 0.0 10^3/uL (0.0-0.1) 08/15/24 15:20 Nucleated RBC % (auto) 0 % 08/15/24 15:20 Nucleated RBCs # 0.0 /100WBC 08/15/24 15:20 PT 12.40 SECONDS (12.1-14.9) 08/15/24 15:20 INR 0.90 (0.8-1.2) 08/15/24 15:20 Sodium 138 mmol/L (136-145) 08/15/24 15:20 Potassium 4.4 mmol/L (3.5-5.1) 08/15/24 15:20 Chloride 99 mmol/L (98-107) 08/15/24 15:20 Carbon Dioxide 29 mmol/L (22-29) 08/15/24 15:20 Anion Gap 14.4 (5-19) 08/15/24 15:20 BUN 16 mg/dL (8-23) 08/15/24 15:20 Creatinine 1.0 mg/dL (0.5-0.9) H 08/15/24 15:20 GFR Calculation Not Reportable 08/15/24 15:20 Glucose 88 mg/dL (65-115) 08/15/24 15:20 Calculated Osmolality 287 mOsm/kg (285-295) 08/15/24 15:20 Calcium 9.6 mg/dL (8.5-10.5) 08/15/24 15:20 Total Bilirubin 0.4 mg/dL (0.15-1.2) 08/15/24 15:20 AST 25 U/L (0-32) 08/15/24 15:20 ALT 18 U/L (0-33) 08/15/24 15:20 Alkaline Phosphatase 73 U/L (35-105) 08/15/24 15:20 Troponin T Baseline 152 ng/L (0-10) H* 08/15/24 15:20 Troponin T 120 Minute 141.2 ng/L (0-10) H 08/15/24 17:05 Delta Troponin T -10.8 ABS# (0-10) L 08/15/24 17:05 NT-Pro-B Natriuret Pep 268 pg/mL (0-125) H 08/15/24 15:20 Total Protein 7.5 g/dL (6.6-8.7) 08/15/24 15:20 Albumin 4.8 g/dL (3.5-5.2) 08/15/24 15:20 Globulin 2.7 g/dL (1.3-4.6) 08/15/24 15:20 All radiology interpretation(s) finalized by discharge EKG Data EKG 1: I personally reviewed and interpreted this EKG as follows: EKG interpretation date: 08/15/24 EKG interpretation time: 14:35 Interpretation: nsr hr [address] elevation qrs 72 qtc 357 Other EKG comments: Chest X-Ray 08/15/24 14:31 IMPRESSION: 1. No acute cardiopulmonary abnormality. 2. Heart size upper limits of normal. EKG 2: I personally reviewed and interpreted this EKG as follows: EKG interpretation date: 08/15/24 EKG interpretation time: 16:58 Interpretation: nsr hr [address] elevation qrs 78 qtc 392 Other EKG comments: Chest X-Ray 08/15/24 14:31 IMPRESSION: 1. No acute cardiopulmonary abnormality. 2. Heart size upper limits of normal. Discharge Plan Discharge Patient Disposition: Home Clinical Impression: Palpitations Condition: Stable Prescriptions: No Action cholecalciferol (vitamin D3) 250 mcg (10,000 unit) tablet 1,000 mcg PO DAILY geriatric [id number] Tablet 1 tab PO DAILY acetaminophen 500 mg capsule 500 mg PO QID PRN (Reason: fever or pain) magnesium 250 mg tablet 250 mg PO DAILY sertraline [Zoloft] 100 mg tablet 150 mg PO DAILY Qty: 45 2RF nitroglycerin 0.4 mg tablet, sublingual 0.4 mg sublingual Q5M PRN (Reason: chest pain) 30 Days Qty: 30 3RF Rx Instructions: until response; do not exceed 3 doses per episode melatonin 3 mg capsule 3 mg PO DAILY atorvastatin 40 mg tablet 40 mg PO DAILY Qty: 90 3RF losartan 50 mg tablet 50 mg PO DAILY Qty: 90 2RF Rx Instructions: Filled for Dr. Johnson while he is out of clinic. albuterol sulfate 90 mcg/actuation HFA aerosol inhaler 1 inh inhalation QID PRN (Reason: shortness of breath or wheezing) Qty: 8.5 5RF amlodipine 5 mg tablet 5 mg PO DAILY Qty: 90 1RF metoprolol succinate 25 mg tablet extended release 24 hr 25 mg PO DAILY Qty: 90 3RF clopidogrel 75 mg Tablet 75 mg PO DAILY Qty: 90 3RF aspirin 81 mg Tablet,Delayed Release (Dr/Ec) 81 mg PO DAILY Qty: 90 3RF Discharge Orders: Discharge ED (Routine); Ordered 08/15/24 Ordered By: Servando Warren Referrals: Nikolay Johnson MD [Primary Care Provider] - Rachel Cornelius MD [Physician] - 1-3 days Discharge Diet: Advance as tolerated Discharge Activity: Resume usual activity Patient Instructions: Heart Palpitations (ED) Coding Level of Care Code ED Maintenance Department Manager for Zane Navas
[2024-08-15 15:36] LABS: Basophils % 0.3 %; Eosinophils # 0.1 10^3/uL (0.0-0.8); Eosinophils % 2.2 %; Hematocrit 39.7 % (36-47); Lymphocytes # 1.6 10^3/uL (0.8-4.8); Lymphocytes % 27.3 %; Mean Corpuscular HGB Conc 32.5 g/dL (30-55); Mean Corpuscular Hemoglobin 29.5 pg (27-33); Mean Corpuscular Volume 90.6 fl (85-98); Mean Platelet Volume 9.6 fL (7.4-10.4); Monocytes # 0.4 10^3/uL (0.2-0.9); Monocytes % 7.1 %; Neutrophils # 3.71 10^3/uL (1.8-7.7); Neutrophils % 62.9 %; Nucleated Red Blood Cells % 0 %; Platelet Count 196 10^3/cmm (157-399); Red Blood Count 4.38 10^6/uL (3.85-5.65); Red Cell Distribution Width 13.2 % (12.1-15.1)
[2024-08-15 15:54] LABS: Troponin(5th) Baseline 152 ng/L (0-10)
[2024-08-15 16:09] LABS: Alanine Aminotransferase 18 U/L (0-33); Albumin Level 4.8 g/dL (3.5-5.2); Alkaline Phosphatase 73 U/L (35-105); Anion Gap 14.4 (5-19); Aspartate Amino Transferase 25 U/L (0-32); Blood Urea Nitrogen 16 mg/dL (8-23); Calcium 9.6 mg/dL (8.5-10.5); Carbon Dioxide 29 mmol/L (22-29); Chloride 99 mmol/L (98-107); Creatinine Clr Calc Pharmacy 44.8822; Globulin 2.7 g/dL (1.3-4.6); Glucose 88 mg/dL (65-115); NT Pro B Type Natriuretic Pept 268 pg/mL (0-125); Osmolality Calculated 287 mOsm/kg (285-295); Potassium 4.4 mmol/L (3.5-5.1); Sodium 138 mmol/L (136-145); Total Bilirubin 0.4 mg/dL (0.15-1.2); Total Protein 7.5 g/dL (6.6-8.7)
--- NOTE | 2024-08-15 16:55 | ECG_ITS ---
[facility] Test Date: 2024-08-15 Pat Name: Petrona Esquivel Department: Room: Gender: Female Collaborating Supervising Physician: : 1955 Requested By: Servando Warren Order Number: [id number] William MD: Rachel Cornelius M.D. Measurements Intervals [place] Rate: 65 P: 64 ME: 184 QRS: 40 QRSD: 78 T: 56 QT: 380 QTc: 397 Interpretive Statements SINUS RHYTHM Compared to ECG 08/15/2024 14:35:48 No significant changes Electronically Signed On 08-15-2024 23:37:40 CDT by Rachel Cornelius M.D. [id number]
[2024-08-15 17:33] LABS: Troponin 5 2HR Delta -10.8 ABS# (0-10)
[2024-08-15 17:35] LABS: Troponin 5 2HR 141.2 ng/L (0-10)
[2024-08-15 17:54] VITALS: BP 122/83; PULSE 72; O2SAT 98
== END 2024-08-15 17:58 | disposition home or self-care (01) ==
PROVIDERS: Emergency Provider Emergency Medicine; PCP Family Medicine Adult Medicine
DX: R00.2 Palpitations (principal); Z79.02 Long term (current) use of antithrombotics/antiplatelets; Z79.82 Long term (current) use of aspirin; Z87.891 Personal history of nicotine dependence; I25.10 Atherosclerotic heart disease of native coronary artery without angina pectoris; I10 Essential (primary) hypertension; E78.2 Mixed hyperlipidemia
CPT/HCPCS: 36415; 71045; 80053; 83880; 84484; 85025; 85610; 93005; 99285

== ENCOUNTER → 2024-08-21 14:41 | Outpatient (BNVA) | payer MEDICARE, OTHER, SELFPAY | PROVIDERS: PCP Family Medicine Adult Medicine; Visit Provider Nurse Practitioner Family | DX: I25.10 Atherosclerotic heart disease of native coronary artery without angina pectoris (principal); R00.2 Palpitations; Z95.5 Presence of coronary angioplasty implant and graft; Z87.891 Personal history of nicotine dependence; I10 Essential (primary) hypertension | CPT/HCPCS: 99214 ==

== ENCOUNTER 2024-09-02 00:21 | Emergency (ER) | payer MEDICARE, OTHER, SELFPAY ==
[2024-09-02 00:25] VITALS: BP 179/84; PULSE 83; RESP 20; TEMP 36.8; O2SAT 99; BMI 29.2
[2024-09-02 01:03] VITALS: BP 175/74; PULSE 89; RESP 13; O2SAT 98
--- NOTE | 2024-09-02 01:16 | W.ED.ARRPALP ---
HPI - Arrhythmia/Palpitations General: Chief Complaint: Arrhythmia/Palpitations Stated Complaint: WEAKNESS Time Seen by Provider: 09/02/24 00:23 History of Present Illness: This patient is a 69-year-old white female who presents to the emergency department with palpitations. Patient states she has a history of atrial fibrillation and she is having A-fib symptoms . She states she has these episodes very frequently. She feels her heart fluttering. No chest pain. Patient has an event monitor on currently. She takes her blood pressure many times per day and keeps all of these in a journal. I did review her numbers and blood pressures do not seem to be out of the ordinary nor her heart rate. She does see Dr. Cornelius, hotel operation manager. Related Data Home Medications Medication Instructions Recorded Confirmed geriatric [id number]-hnun-tujy 1 tab PO DAILY 02/11/20 08/29/24 cholecalciferol (vitamin D3) 250 1,000 mcg PO DAILY 02/05/22 08/29/24 mcg (10,000 unit) tablet magnesium 250 mg tablet 250 mg PO DAILY 02/05/22 08/29/24 acetaminophen 500 mg capsule 500 mg PO QID PRN fever or pain 08/24/22 08/29/24 melatonin 3 mg capsule 3 mg PO DAILY 08/24/22 08/29/24 Previous Rx's Medication Instructions Recorded atorvastatin 40 mg tablet 40 mg PO DAILY cholesterol/fats 04/10/24 #90 tabs albuterol sulfate 90 mcg/actuation 1 inh inhalation QID PRN shortness 04/27/24 aerosol inhaler of breath or wheezing #8.5 grams amlodipine 5 mg tablet 5 mg PO DAILY blood pressure #90 05/01/24 tabs nitroglycerin 0.4 mg sublingual 0.4 mg sublingual Q5M PRN chest 07/17/24 tablet pain 30 days #30 tabs aspirin 81 mg tablet,delayed 81 mg PO DAILY #90 tabs 08/11/24 release clopidogrel 75 mg tablet 75 mg PO DAILY #90 tabs 08/11/24 losartan 50 mg tablet 100 mg (2 x 50 mg) PO DAILY #90 08/22/24 tabs metoprolol succinate 50 mg 25 mg (1/2 x 50 mg) PO DAILY #45 08/29/24 tablet,extended release 24 hr tabs sertraline 100 mg tablet (Zoloft) 150 mg (1.5 x 100 mg) PO DAILY 08/29/24 [facility] #45 tabs Allergies Allergy/AdvReac Type Severity Reaction Status Date / Time cinnamon Allergy Intermediate Coughing & Verified 08/29/24 14:09 throat itching topiramate [From Topamax] Allergy ADR-Depress Verified 08/29/24 14:09 ion trazodone AdvReac Intermediate ADR-Depress Verified 08/29/24 14:09 ion Unknown antibiotic AdvReac Unknown Anaphylaxis Uncoded 08/29/24 14:09 Review of Systems General: Reports: 10 or more systems reviewed and unremarkable except in HPI and below Card: Reports: palpitations PFSH ED PFSH: Medical History DDD (degenerative disc disease), lumbar Allergic rhinitis due to allergen Reactive airway disease without asthma Pre-diabetes HgbA1C 5.8 08/23/2023 Hx of cataract left eye CAD (coronary artery disease) mild to moderate disease by coronary CTA with negative CT FFR [facility] Essential hypertension Mixed dyslipidemia Postural hypotension Psychiatric care Generalized anxiety disorder Major depressive disorder, recurrent, mild Surgical History S/P shoulder replacement Family History Father FH: carotid endarterectomy Hypertension Carotid artery stenosis Mother Headache Hypertension Brother Myocardial infarction Hypertension Grandfather Stroke Family/Other Psychiatric diagnosis Social History Smoking and tobacco/nicotine status: former use of tobacco/nicotine Quit status (tobacco/nicotine): has quit using Year quit tobacco: 1979 Second hand smoke exposure: Yes Alcohol intake: current Alcohol intake frequency: holidays/special occasions only Alcohol type: beer and wine Substance/Drug Use: never Current gender identity: Female Physical Exam Const: COMMON NORMALS: no acute distress, patient oriented x3 and no limitations GENERAL APPEARANCE: cooperative and comfortable HENMT: COMMON NORMALS: normocephalic, atraumatic, Normal nasal mucous membranes and turbinates present, moist oral mucous membranes and oropharynx normal HEAD & SCALP: normal to inspection, normocephalic and atraumatic FACE & SINUS: normal facial exam NOSE: Normal nasal mucous membranes and turbinates present Eye: COMMON NORMALS: Equal, round and reactive pupils present, EOMs intact bilaterally and conjunctivae normal GENERAL EYE: appearance normal, both eyes and all related structures CONJUNCTIVA: Yes conjunctivae normal PUPIL: Yes Equal, round and reactive pupils present Neck/C-Spine: COMMON NORMALS: supple and no JVD Chest: COMMONS NORMALS: normal inspection of the chest Resp: COMMON NORMALS: normal respiratory effort and clear to auscultation bilaterally AUSCULTATION: clear to auscultation bilaterally Cardio: COMMON NORMALS: no JVD, regular rate, regular rhythm, No gallops present (Cardio), No murmurs present (Cardio) and No rub (Cardio) RATE: regular rate RHYTHM: regular rhythm GI: COMMON NORMALS: Normal to inspection, nondistended, normoactive bowel sounds present, Soft to palpation and non-tender AUSCULTATION: Yes normoactive bowel sounds PALPATION: Yes Soft to palpation : COMMON NORMALS: Yes no CVA tenderness BLADDER/KIDNEY EXAM: Yes no CVA tenderness Back/Pelvis: COMMON NORMALS: no CVA tenderness and thoracic and lumbar spine normal to inspection Extremity: COMMON NORMALS: normal to inspection Neuro: COMMON NORMALS: patient oriented x3 and CN's II-XII intact bilaterally Psych: COMMON NORMALS: mental status grossly normal, Normal thought process present and cooperative THOUGHT PROCESS: Normal thought process present Skin: COMMON NORMALS: no rashes or lesions noted, turgor normal and no jaundice GENERAL SKIN EXAM: no rashes or lesions noted and turgor normal Course Vital Signs: Vital signs: Vital Signs Temperature 98.3 F 09/02/24 00:25 Pulse Rate 89 09/02/24 01:03 Respiratory Rate 13 09/02/24 01:03 Blood Pressure 175/74 09/02/24 01:03 Pulse Oximetry 98 09/02/24 01:03 Oxygen Delivery Me thod Room Air 09/02/24 01:03 MDM - Arrhythmia/Palpitations Medical Decision Making Patient's vital signs are normal in the emergency department. Her palpitations are currently being worked up by her primary care physician and her hotel operation manager. Patient seems to be anxious and perseverating on her symptoms. I recommended she follow-up with her primary care physician and her hotel operation manager for ongoing management. She was discharged in stable condition. No radiology studies performed this visit Discharge Plan Discharge Patient Disposition: Home Clinical Impression: Palpitations Condition: Stable Prescriptions: No Action cholecalciferol (vitamin D3) 250 mcg (10,000 unit) tablet 1,000 mcg PO DAILY geriatric [id number] Tablet 1 tab PO DAILY acetaminophen 500 mg capsule 500 mg PO QID PRN (Reason: fever or pain) magnesium 250 mg tablet 250 mg PO DAILY nitroglycerin 0.4 mg tablet, sublingual 0.4 mg sublingual Q5M PRN (Reason: chest pain) 30 Days Qty: 30 3RF Rx Instructions: until response; do not exceed 3 doses per episode sertraline [Zoloft] 100 mg tablet 150 mg PO DAILY Qty: 45 2RF melatonin 3 mg capsule 3 mg PO DAILY atorvastatin 40 mg tablet 40 mg PO DAILY Qty: 90 3RF albuterol sulfate 90 mcg/actuation HFA aerosol inhaler 1 inh inhalation QID PRN (Reason: shortness of breath or wheezing) Qty: 8.5 5RF amlodipine 5 mg tablet 5 mg PO DAILY Qty: 90 1RF losartan 50 mg tablet 100 mg PO DAILY Qty: 90 2RF Rx Instructions: Filled for Dr. Johnson while he is out of clinic. metoprolol succinate 50 mg tablet extended release 24 hr 25 mg PO DAILY Qty: 45 0RF clopidogrel 75 mg Tablet 75 mg PO DAILY Qty: 90 3RF aspirin 81 mg Tablet,Delayed Release (Dr/Ec) 81 mg PO DAILY Qty: 90 3RF Discharge Orders: Discharge ED (Routine); Ordered 09/02/24 Ordered By: Umer Garcia Referrals: Nikolay Johnson MD [Primary Care Provider] - Patient Instructions: Heart Palpitations Coding Level of Care Code ED [employer] for Zane Navas
[2024-09-02 01:42] VITALS: BP 153/78; PULSE 78; O2SAT 97
== END 2024-09-02 02:05 | disposition home or self-care (01) ==
PROVIDERS: Emergency Provider Emergency Medicine; PCP Family Medicine Adult Medicine
DX: R00.2 Palpitations (principal); Z79.02 Long term (current) use of antithrombotics/antiplatelets; Z79.82 Long term (current) use of aspirin; Z87.891 Personal history of nicotine dependence; I25.10 Atherosclerotic heart disease of native coronary artery without angina pectoris; I10 Essential (primary) hypertension; E78.2 Mixed hyperlipidemia
CPT/HCPCS: 99281

== ENCOUNTER 2024-09-03 23:05 | Emergency (ER) | payer MEDICARE, OTHER, SELFPAY ==
--- NOTE | 2024-09-03 23:09 | ECG_ITS ---
[facility]24-[facility]03 Pat Name: Petrona Esquivel Department: Room: Gender: Female Travel Rn: : 1955 Requested By: Morales Olson Order Number: [id number] Reading MD: JEFERSON DALY Measurements Intervals [place] Rate: 84 P: 69 MI: 159 QRS: 35 QRSD: 82 T: 50 QT: 331 QTc: 393 Interpretive Statements SINUS RHYTHM Compared to ECG 08/15/2024 16:58:25 No significant changes Electronically Signed On 09-04-2024 20:59:41 CDT by JEFERSON DALY [id number]
[2024-09-03 23:18] VITALS: BP 152/78; PULSE 82; RESP 16; TEMP 36.7; O2SAT 98
[2024-09-04] VITALS (11 sets, daily range): BP systolic 123–169; BP diastolic 65–86; PULSE 59–75; RESP 13–26; O2SAT 96–99
--- NOTE | 2024-09-04 00:11 | XRR_ITS ---
PROCEDURE INFORMATION: Exam: XR Chest Exam date and time: 09/04/2024 12:58 AM Age: 69 years old Clinical indication: Other: Some chest pain with palpitations; Prior surgery; Surgery date: 6+ months; Surgery type: Left shoulder replacement TECHNIQUE: Imaging protocol: Radiologic exam of the chest. Views: 1 view. COMPARISON: CR XR chest 1V portable [id number] 08/15/2024 3:34 PM FINDINGS: Tubes, catheters and devices: Electronic device projects over the mid upper chest. Lungs: Unremarkable. No consolidation. Pleural spaces: Unremarkable. No pleural effusion. No pneumothorax. Heart/Mediastinum: Stable cardiomediastinal silhouette. Bones/joints: Left shoulder arthroplasty hardware re-identified. XR/XR chest 1V portable [id number] IMPRESSION: No evidence of active cardiopulmonary disease.
--- NOTE | 2024-09-04 00:23 | W.ED.ARRPALP ---
Documented by User: VANESSA Sagastume 09/04/24 17:07 HPI - Arrhythmia/Palpitations General: Chief Complaint: Arrhythmia/Palpitations Stated Complaint: BP\A-Fib Time Seen by Provider: 09/03/24 23:47 Source: patient Mode of arrival: ambulatory Limitations: no limitations History of Present Illness: Patient is a 69-year-old female who is well-known to the emergency department, presenting for concerns about her blood pressure today. Has been seen multiple times in the past for this, however she did recently undergo cardiac cath which was reportedly unremarkable. She sees Dr. Cornelius, hostler helper, for concerns of arrhythmias and has been on a Holter monitor for over a week. Her complaints today are having concerning blood pressure readings and heart events and she arrives stating she wants admission for observation. She has not been experiencing any symptoms, however after informing her that admission simply for observation without a workup is not a possibility, she begins reporting to me that she has been having palpitations and feeling weird. At time of examination, she is noted to be cycling through her blood pressure machine and repeatedly taking measurements. She states that she wants monitored for certain amount of time and her blood pressure to be cycled every 2-5 minutes so that she can compare our readings with her at home machine. Her EKG on triage showed normal sinus rhythm with no arrhythmia. Patient very tangential with conversation with pressured speech. Associated symptoms: Deny nausea or vomiting Related Data Home Medications Medication Instructions Recorded Confirmed geriatric [id number] 1 tab PO DAILY 02/11/20 08/29/24 cholecalciferol (vitamin D3) 250 1,000 mcg PO DAILY 02/05/22 08/29/24 mcg (10,000 unit) tablet magnesium 250 mg tablet 250 mg PO DAILY 02/05/22 08/29/24 acetaminophen 500 mg capsule 500 mg PO QID PRN fever or pain 08/24/22 08/29/24 melatonin 3 mg capsule 3 mg PO DAILY 08/24/22 08/29/24 Previous Rx's Medication Instructions Recorded atorvastatin 40 mg tablet 40 mg PO DAILY cholesterol/fats 04/10/24 #90 tabs albuterol sulfate 90 mcg/actuation 1 inh inhalation QID PRN shortness 04/27/24 aerosol inhaler of breath or wheezing #8.5 grams amlodipine 5 mg tablet 5 mg PO DAILY blood pressure #90 05/01/24 tabs nitroglycerin 0.4 mg sublingual 0.4 mg sublingual Q5M PRN chest 07/17/24 tablet pain 30 days #30 tabs aspirin 81 mg tablet,delayed 81 mg PO DAILY #90 tabs 08/11/24 release clopidogrel 75 mg tablet 75 mg PO DAILY #90 tabs 08/11/24 losartan 50 mg tablet 100 mg (2 x 50 mg) PO DAILY #90 08/22/24 tabs metoprolol succinate 50 mg 25 mg (1/2 x 50 mg) PO DAILY #45 08/29/24 tablet,extended release 24 hr tabs sertraline 100 mg tablet (Zoloft) 150 mg (1.5 x 100 mg) PO DAILY 08/29/24 mental health #45 tabs Allergies Allergy/AdvReac Type Severity Reaction Status Date / Time cinnamon Allergy Intermediate Coughing & Verified 09/03/24 23:25 throat itching topiramate [From Topamax] Allergy ADR-Depress Verified 09/03/24 23:25 ion trazodone AdvReac Intermediate ADR-Depress Verified 09/03/24 23:25 ion Unknown antibiotic AdvReac Unknown Anaphylaxis Uncoded 09/03/24 23:25 Review of Systems General: Reports: 10 or more systems reviewed and unremarkable except in HPI and below Const: Reports: other (Abnormal blood pressure readings on home machine); Denies: fever(s), chills or fatigue Eyes: Denies: change in vision ENMT: Denies: throat pain, ear or mastoid pain or nasal discharge Card: Reports: palpitations; Denies: chest pain, swelling of feet/ankles or lightheadedness Resp: Denies: dyspnea, productive cough or wheezing GI: Denies: abdominal pain, nausea, vomiting, diarrhea or constipation : Denies: flank pain, difficulty voiding, dysuria or urinary frequency Musc: Denies: neck pain, back pain or joint pain Skin/Breast: Denies: rash Neuro: Denies: headache(s), numbness in extremities or weakness in extremities PFSH ED PFSH: Medical History DDD (degenerative disc disease), lumbar Allergic rhinitis due to allergen Reactive airway disease without asthma Pre-diabetes HgbA1C 5.8 08/23/2023 Hx of cataract left eye CAD (coronary artery disease) mild to moderate disease by coronary CTA with negative CT FFR [facility] Essential hypertension Mixed dyslipidemia Postural hypotension Psychiatric care Generalized anxiety disorder Major depressive disorder, recurrent, mild Surgical History S/P shoulder replacement Family History Father FH: carotid endarterectomy Hypertension Carotid artery stenosis Mother Headache Hypertension Brother Myocardial infarction Hypertension Grandfather Stroke Family/Other Psychiatric diagnosis Social History Smoking and tobacco/nicotine status: former use of tobacco/nicotine Quit status (tobacco/nicotine): has quit using Year quit tobacco: 1980 Second hand smoke exposure: Yes Alcohol intake: current Alcohol intake frequency: holidays/special occasions only Alcohol type: beer and wine Substance/Drug Use: never Current gender identity: Female Physical Exam Const: COMMON NORMALS: patient oriented x3 and alert GENERAL APPEARANCE: anxious OTHER: As mentioned, patient repeatedly cycling through her blood pressure machine at time of examination. Tangential, pressured speech. She does appear anxious as well, vitals stable and she is nontoxic-appearing. HENMT: COMMON NORMALS: normocephalic and atraumatic HEAD & SCALP: normocephalic and atraumatic Eye: COMMON NORMALS: EOMs intact bilaterally and conjunctivae normal CONJUNCTIVA: Yes conjunctivae normal Neck/C-Spine: COMMON NORMALS: full ROM Resp: COMMON NORMALS: normal respiratory effort, No use of accessory muscles and clear to auscultation bilaterally AUSCULTATION: clear to auscultation bilaterally Cardio: COMMON NORMALS: regular rate, regular rhythm, No gallops present (Cardio), No murmurs present (Cardio) and No rub (Cardio) RATE: regular rate RHYTHM: regular rhythm Extremity: COMMON NORMALS: normal to inspection and full ROM Neuro: COMMON NORMALS: patient oriented x3, moves all extremities, no focal motor deficits and no sensory deficits noted SENSORIUM/ORIENTATION: Yes alert Psych: COMMON NORMALS: mental status grossly normal APPEARANCE: Yes grossly normal ACTIVITY/MOTOR BEHAVIOR: Yes appropriate eye contact SPEECH: Yes Pressured speech present MOOD & AFFECT: Yes anxious THOUGHT PROCESS: Tangential thought process present THOUGHT CONTENT: Yes Normal thought content present Skin: COMMON NORMALS: no rashes or lesions noted GENERAL SKIN EXAM: no rashes or lesions noted Course Vital Signs: Vital signs: Vital Signs Temperature 98.1 F 09/03/24 23:18 Pulse Rate 71 09/04/24 04:41 Respiratory Rate 13 09/04/24 04:41 Blood Pressure 136/78 09/04/24 04:41 Pulse Oximetry 98 09/04/24 04:41 Oxygen Delivery Me thod Room Air 09/03/24 23:18 MDM - Arrhythmia/Palpitations Lab Data 09/04/24 00:38 09/04/24 00:38 Radiology Impressions Chest X-Ray 09/04/24 00:11 IMPRESSION: No evidence of active cardiopulmonary disease. Laboratory Results WBC 6.96 10^3/uL (3.29-11.43) 09/04/24 00:38 RBC 4.83 10^6/uL (3.85-5.65) 09/04/24 00:38 Hgb 13.90 g/dL (11.27-16.99) 09/04/24 00:38 Hct 43.4 % (36-47) 09/04/24 00:38 MCV 89.9 fl (85-98) 09/04/24 00:38 MCH 28.8 pg (27-33) 09/04/24 00:38 MCHC 32.0 g/dL (30-55) 09/04/24 00:38 RDW 13.2 % (12.1-15.1) 09/04/24 00:38 Plt Count 192 10^3/cmm (157-399) 09/04/24 00:38 MPV 9.2 fL (7.4-10.4) 09/04/24 00:38 Neut % (Auto) 69.2 % 09/04/24 00:38 Lymph % (Auto) 22.7 % 09/04/24 00:38 [place] % (Auto) 5.7 % 09/04/24 00:38 Eos % (Auto) 1.7 % 09/04/24 00:38 Baso % (Auto) 0.4 % 09/04/24 00:38 Neut # (Auto) 4.81 10^3/uL (1.8-7.7) 09/04/24 00:38 Lymph # (Auto) 1.6 10^3/uL (0.8-4.8) 09/04/24 00:38 [place] # (Auto) 0.4 10^3/uL (0.2-0.9) 09/04/24 00:38 Eos # (Auto) 0.1 10^3/uL (0.0-0.8) 09/04/24 00:38 Baso # (Auto) 0.0 10^3/uL (0.0-0.1) 09/04/24 00:38 Nucleated RBC % (auto) 0 % 09/04/24 00:38 Nucleated RBCs # 0.0 /100WBC 09/04/24 00:38 Sodium 140 mmol/L (136-145) 09/04/24 00:38 Potassium 3.5 mmol/L (3.5-5.1) 09/04/24 00:38 Chloride 99 mmol/L (98-107) 09/04/24 00:38 Carbon Dioxide 26 mmol/L (22-29) 09/04/24 00:38 Anion Gap 18.5 (5-19) 09/04/24 00:38 BUN 19 mg/dL (8-23) 09/04/24 00:38 Creatinine 0.8 mg/dL (0.5-0.9) 09/04/24 00:38 GFR Calculation Not Reportable 09/04/24 00:38 Glucose 111 mg/dL (65-115) 09/04/24 00:38 Calculated Osmolality 293 mOsm/kg (285-295) 09/04/24 00:38 Calcium 9.4 mg/dL (8.5-10.5) 09/04/24 00:38 Total Bilirubin 0.7 mg/dL (0.15-1.2) 09/04/24 00:38 AST 28 U/L (0-32) 09/04/24 00:38 ALT 18 U/L (0-33) 09/04/24 00:38 Alkaline Phosphatase 72 U/L (35-105) 09/04/24 00:38 Troponin T Baseline 10 ng/L (0-10) 09/04/24 00:38 Troponin T 120 Minute 11.21 ng/L (0-10) H 09/04/24 02:37 Delta Troponin T 1.21 ABS# (0-10) 09/04/24 02:37 NT-Pro-B Natriuret Pep 168 pg/mL (0-125) H 09/04/24 00:38 Total Protein 8.2 g/dL (6.6-8.7) 09/04/24 00:38 Albumin 5.3 g/dL (3.5-5.2) H 09/04/24 00:38 Globulin 2.9 g/dL (1.3-4.6) 09/04/24 00:38 All radiology interpretation(s) finalized by discharge Discharge Plan Discharge Patient Disposition: Home Clinical Impression: Essential hypertension Condition: Stable Prescriptions: No Action cholecalciferol (vitamin D3) 250 mcg (10,000 unit) tablet 1,000 mcg PO DAILY geriatric ytvydkqy-yxma-npyl Tablet 1 tab PO DAILY acetaminophen 500 mg capsule 500 mg PO QID PRN (Reason: fever or pain) magnesium 250 mg tablet 250 mg PO DAILY nitroglycerin 0.4 mg tablet, sublingual 0.4 mg sublingual Q5M PRN (Reason: chest pain) 30 Days Qty: 30 3RF Rx Instructions: until response; do not exceed 3 doses per episode sertraline [Zoloft] 100 mg tablet 150 mg PO DAILY Qty: 45 2RF melatonin 3 mg capsule 3 mg PO DAILY atorvastatin 40 mg tablet 40 mg PO DAILY Qty: 90 3RF albuterol sulfate 90 mcg/actuation HFA aerosol inhaler 1 inh inhalation QID PRN (Reason: shortness of breath or wheezing) Qty: 8.5 5RF amlodipine 5 mg tablet 5 mg PO DAILY Qty: 90 1RF losartan 50 mg tablet 100 mg PO DAILY Qty: 90 2RF Rx Instructions: Filled for Dr. Johnson while he is out of clinic. metoprolol succinate 50 mg tablet extended release 24 hr 25 mg PO DAILY Qty: 45 0RF clopidogrel 75 mg Tablet 75 mg PO DAILY Qty: 90 3RF aspirin 81 mg Tablet,Delayed Release (Dr/Ec) 81 mg PO DAILY Qty: 90 3RF Discharge Orders: Discharge ED (Routine); Ordered 09/04/24 Ordered By: Morales Olson Referrals: Nikolay Johnson MD [Primary Care Provider] - 1 week Patient Instructions: Hypertension (ED) Activity Restrictions/Additional Instructions: Your evaluation ER that included lab work and physical exam all was fairly benign. Please keep a blood pressure log and take to your next family practice visit. Please make this appointment within the next 7 days for further evaluation and treatment. Coding Level of Care Code ED Belt Loop Machine Operator for Debbyg Fwd Documented by User: Morales Olson DO 09/04/24 03:13 HPI - Arrhythmia/Palpitations General: Chief Complaint: Arrhythmia/Palpitations Stated Complaint: BP\A-Fib Time Seen by Provider: 09/03/24 23:47 Related Data Home Medications Medication Instructions Recorded Confirmed geriatric uyztuasr-ztyw-zdkg 1 tab PO DAILY 02/11/20 08/29/24 cholecalciferol (vitamin D3) 250 1,000 mcg PO DAILY 02/05/22 08/29/24 mcg (10,000 unit) tablet magnesium 250 mg tablet 250 mg PO DAILY 02/05/22 08/29/24 acetaminophen 500 mg capsule 500 mg PO QID PRN fever or pain 08/24/22 08/29/24 melatonin 3 mg capsule 3 mg PO DAILY 08/24/22 08/29/24 Previous Rx's Medication Instructions Recorded atorvastatin 40 mg tablet 40 mg PO DAILY cholesterol/fats 04/10/24 #90 tabs albuterol sulfate 90 mcg/actuation 1 inh inhalation QID PRN shortness 04/27/24 aerosol inhaler of breath or wheezing #8.5 grams amlodipine 5 mg tablet 5 mg PO DAILY blood pressure #90 05/01/24 tabs nitroglycerin 0.4 mg sublingual 0.4 mg sublingual Q5M PRN chest 07/17/24 tablet pain 30 days #30 tabs aspirin 81 mg tablet,delayed 81 mg PO DAILY #90 tabs 08/11/24 release clopidogrel 75 mg tablet 75 mg PO DAILY #90 tabs 08/11/24 losartan 50 mg tablet 100 mg (2 x 50 mg) PO DAILY #90 08/22/24 tabs metoprolol succinate 50 mg 25 mg (1/2 x 50 mg) PO DAILY #45 08/29/24 tablet,extended release 24 hr tabs sertraline 100 mg tablet (Zoloft) 150 mg (1.5 x 100 mg) PO DAILY 08/29/24 mental health #45 tabs Allergies Allergy/AdvReac Type Severity Reaction Status Date / Time cinnamon Allergy Intermediate Coughing & Verified 09/03/24 23:25 throat itching topiramate [From Topamax] Allergy ADR-Depress Verified 09/03/24 23:25 ion trazodone AdvReac Intermediate ADR-Depress Verified 09/03/24 23:25 ion Unknown antibiotic AdvReac Unknown Anaphylaxis Uncoded 09/03/24 23:25 PFS ED PFSH: Medical History DDD (degenerative disc disease), lumbar Allergic rhinitis due to allergen Reactive airway disease without asthma Pre-diabetes HgbA1C 5.8 08/23/2023 Hx of cataract left eye CAD (coronary artery disease) mild to moderate disease by coronary CTA with negative CT FFR [facility] Essential hypertension Mixed dyslipidemia Postural hypotension Psychiatric care Generalized anxiety disorder Major depressive disorder, recurrent, mild Surgical History S/P shoulder replacement Family History Father FH: carotid endarterectomy Hypertension Carotid artery stenosis Mother Headache Hypertension Brother Myocardial infarction Hypertension Grandfather Stroke Family/Other Psychiatric diagnosis Social History Smoking and tobacco/nicotine status: former use of tobacco/nicotine Quit status (tobacco/nicotine): has quit using Year quit tobacco: 1980 Second hand smoke exposure: Yes Alcohol intake: current Alcohol intake frequency: holidays/special occasions only Alcohol type: beer and wine Substance/Drug Use: never Current gender identity: Female Course Vital Signs: Vital signs: Vital Signs Temperature 98.1 F 09/03/24 23:18 Pulse Rate 71 09/04/24 04:41 Respiratory Rate 13 09/04/24 04:41 Blood Pressure 136/78 09/04/24 04:41 Pulse Oximetry 98 09/04/24 04:41 Oxygen Delivery Me thod Room Air 09/03/24 23:18 MDM - Arrhythmia/Palpitations Medical Decision Making Patient care transitioned over to myself at shift change, lab work was reviewed as well as multiple vital signs. Patient be discharged home. Lab Data 09/04/24 00:38 09/04/24 00:38 Radiology Impressions Chest X-Ray 09/04/24 00:11 IMPRESSION: No evidence of active cardiopulmonary disease. Laboratory Results WBC 6.96 10^3/uL (3.29-11.43) 09/04/24 00:38 RBC 4.83 10^6/uL (3.85-5.65) 09/04/24 00:38 Hgb 13.90 g/dL (11.27-16.99) 09/04/24 00:38 Hct 43.4 % (36-47) 09/04/24 00:38 MCV 89.9 fl (85-98) 09/04/24 00:38 MCH 28.8 pg (27-33) 09/04/24 00:38 MCHC 32.0 g/dL (30-55) 09/04/24 00:38 RDW 13.2 % (12.1-15.1) 09/04/24 00:38 Plt Count 192 10^3/cmm (157-399) 09/04/24 00:38 MPV 9.2 fL (7.4-10.4) 09/04/24 00:38 Neut % (Auto) 69.2 % 09/04/24 00:38 Lymph % (Auto) 22.7 % 09/04/24 00:38 [place] % (Auto) 5.7 % 09/04/24 00:38 Eos % (Auto) 1.7 % 09/04/24 00:38 Baso % (Auto) 0.4 % 09/04/24 00:38 Neut # (Auto) 4.81 10^3/uL (1.8-7.7) 09/04/24 00:38 Lymph # (Auto) 1.6 10^3/uL (0.8-4.8) 09/04/24 00:38 [place] # (Auto) 0.4 10^3/uL (0.2-0.9) 09/04/24 00:38 Eos # (Auto) 0.1 10^3/uL (0.0-0.8) 09/04/24 00:38 Baso # (Auto) 0.0 10^3/uL (0.0-0.1) 09/04/24 00:38 Nucleated RBC % (auto) 0 % 09/04/24 00:38 Nucleated RBCs # 0.0 /100WBC 09/04/24 00:38 Sodium 140 mmol/L (136-145) 09/04/24 00:38 Potassium 3.5 mmol/L (3.5-5.1) 09/04/24 00:38 Chloride 99 mmol/L (98-107) 09/04/24 00:38 Carbon Dioxide 26 mmol/L (22-29) 09/04/24 00:38 Anion Gap 18.5 (5-19) 09/04/24 00:38 BUN 19 mg/dL (8-23) 09/04/24 00:38 Creatinine 0.8 mg/dL (0.5-0.9) 09/04/24 00:38 GFR Calculation Not Reportable 09/04/24 00:38 Glucose 111 mg/dL (65-115) 09/04/24 00:38 Calculated Osmolality 293 mOsm/kg (285-295) 09/04/24 00:38 Calcium 9.4 mg/dL (8.5-10.5) 09/04/24 00:38 Total Bilirubin 0.7 mg/dL (0.15-1.2) 09/04/24 00:38 AST 28 U/L (0-32) 09/04/24 00:38 ALT 18 U/L (0-33) 09/04/24 00:38 Alkaline Phosphatase 72 U/L (35-105) 09/04/24 00:38 Troponin T Baseline 10 ng/L (0-10) 09/04/24 00:38 Troponin T 120 Minute 11.21 ng/L (0-10) H 09/04/24 02:37 Delta Troponin T 1.21 ABS# (0-10) 09/04/24 02:37 NT-Pro-B Natriuret Pep 168 pg/mL (0-125) H 09/04/24 00:38 Total Protein 8.2 g/dL (6.6-8.7) 09/04/24 00:38 Albumin 5.3 g/dL (3.5-5.2) H 09/04/24 00:38 Globulin 2.9 g/dL (1.3-4.6) 09/04/24 00:38 Discharge Plan Discharge Patient Disposition: Home Clinical Impression: Essential hypertension Condition: Stable Prescriptions: No Action cholecalciferol (vitamin D3) 250 mcg (10,000 unit) tablet 1,000 mcg PO DAILY geriatric pzsqsnwg-vrgt-qorh Tablet 1 tab PO DAILY acetaminophen 500 mg capsule 500 mg PO QID PRN (Reason: fever or pain) magnesium 250 mg tablet 250 mg PO DAILY nitroglycerin 0.4 mg tablet, sublingual 0.4 mg sublingual Q5M PRN (Reason: chest pain) 30 Days Qty: 30 3RF Rx Instructions: until response; do not exceed 3 doses per episode sertraline [Zoloft] 100 mg tablet 150 mg PO DAILY Qty: 45 2RF melatonin 3 mg capsule 3 mg PO DAILY atorvastatin 40 mg tablet 40 mg PO DAILY Qty: 90 3RF albuterol sulfate 90 mcg/actuation HFA aerosol inhaler 1 inh inhalation QID PRN (Reason: shortness of breath or wheezing) Qty: 8.5 5RF amlodipine 5 mg tablet 5 mg PO DAILY Qty: 90 1RF losartan 50 mg tablet 100 mg PO DAILY Qty: 90 2RF Rx Instructions: Filled for Dr. Johnson while he is out of clinic. metoprolol succinate 50 mg tablet extended release 24 hr 25 mg PO DAILY Qty: 45 0RF clopidogrel 75 mg Tablet 75 mg PO DAILY Qty: 90 3RF aspirin 81 mg Tablet,Delayed Release (Dr/Ec) 81 mg PO DAILY Qty: 90 3RF Discharge Orders: Discharge ED (Routine); Ordered 09/04/24 Ordered By: Morales Olson Referrals: Nikolay Johnson MD [Primary Care Provider] - 1 week Patient Instructions: Hypertension (ED) Activity Restrictions/Additional Instructions: Your evaluation ER that included lab work and physical exam all was fairly benign. Please keep a blood pressure log and take to your next family practice visit. Please make this appointment within the next 7 days for further evaluation and treatment. Coding Level of Care Code ED Belt Loop Machine Operator for Zane Navas
[2024-09-04 00:53] LABS: Basophils % 0.4 %; Eosinophils # 0.1 10^3/uL (0.0-0.8); Eosinophils % 1.7 %; Hematocrit 43.4 % (36-47); Lymphocytes # 1.6 10^3/uL (0.8-4.8); Lymphocytes % 22.7 %; Mean Corpuscular Hemoglobin 28.8 pg (27-33); Mean Corpuscular Volume 89.9 fl (85-98); Mean Platelet Volume 9.2 fL (7.4-10.4); Monocytes # 0.4 10^3/uL (0.2-0.9); Monocytes % 5.7 %; Neutrophils # 4.81 10^3/uL (1.8-7.7); Neutrophils % 69.2 %; Nucleated Red Blood Cells % 0 %; Platelet Count 192 10^3/cmm (157-399); Red Blood Count 4.83 10^6/uL (3.85-5.65); Red Cell Distribution Width 13.2 % (12.1-15.1); White Blood Count 6.96 10^3/uL (3.29-11.43)
[2024-09-04 01:17] LABS: Troponin(5th) Baseline 10 ng/L (0-10)
[2024-09-04 01:22] LABS: Alanine Aminotransferase 18 U/L (0-33); Albumin Level 5.3 g/dL (3.5-5.2); Alkaline Phosphatase 72 U/L (35-105); Anion Gap 18.5 (5-19); Aspartate Amino Transferase 28 U/L (0-32); Blood Urea Nitrogen 19 mg/dL (8-23); Calcium 9.4 mg/dL (8.5-10.5); Carbon Dioxide 26 mmol/L (22-29); Chloride 99 mmol/L (98-107); Creatinine Clr Calc Pharmacy 55.7334; Globulin 2.9 g/dL (1.3-4.6); Glucose 111 mg/dL (65-115); Osmolality Calculated 293 mOsm/kg (285-295); Potassium 3.5 mmol/L (3.5-5.1); Sodium 140 mmol/L (136-145); Total Bilirubin 0.7 mg/dL (0.15-1.2); Total Protein 8.2 g/dL (6.6-8.7)
[2024-09-04 01:24] LABS: NT Pro B Type Natriuretic Pept 168 pg/mL (0-125)
--- NOTE | 2024-09-04 02:11 | ECG_ITS ---
[facility]: 2024-09-04 Pat Name: Petrona Esquivel Department: Room: Gender: Female Inside Sales Person: : 1955 Requested By: Pj Ferrer Order Number: [id number] Reading MD: JEFERSON DALY Measurements Intervals Ashley Rate: 71 P: 50 HI: 159 QRS: 27 QRSD: 82 T: 60 QT: 365 QTc: 398 Interpretive Statements SINUS RHYTHM Compared to ECG 09/03/2024 23:09:33 No significant changes Electronically Signed On 09-04-2024 21:17:10 CDT by JEFERSON DALY [email or web address]
[2024-09-04 03:01] LABS: Troponin 5 2HR 11.21 ng/L (0-10); Troponin 5 2HR Delta 1.21 ABS# (0-10)
--- NOTE | 2024-09-04 03:24 | PC.NURSE ---
Pt had placed the call light on. Upon entering the room the pt stated you're missing all my episodes . Pt is referring to her BP's that she has taken every 2 mins as episodes of Afib being uncontrolled. Pt also admitted to taking a SL Nitro tab in the room without being advised by the Provider or the Nurse. When ask if the pt was having active chest pain she stated No, I'm taking it for my blood pressure to bring it down. Pt's blood pressures have been 130's over 60's. Provider was notified of the pt taking medication.
== END 2024-09-04 04:24 | disposition home or self-care (01) ==
PROVIDERS: Emergency Provider Physician Assistant; PCP Family Medicine Adult Medicine
DX: I10 Essential (primary) hypertension (principal)
CPT/HCPCS: 71045; 80053; 83880; 84484; 85025; 93005; 99285

== ENCOUNTER → 2024-09-06 14:30 | Outpatient (BNVA) | payer MEDICARE, OTHER, SELFPAY | PROVIDERS: PCP Family Medicine Adult Medicine; Visit Provider Specialist | DX: F33.0 Major depressive disorder, recurrent, mild (principal); F41.1 Generalized anxiety disorder; R42 Dizziness and giddiness; R29.90 Unspecified symptoms and signs involving the nervous system; G31.84 Mild cognitive impairment of uncertain or unknown etiology; G43.711 Chronic migraine without aura, intractable, with status migrainosus | CPT/HCPCS: 96116; 99215 ==

== ENCOUNTER 2024-09-20 07:43 | Outpatient (CLI) | payer MEDICARE, OTHER, SELFPAY ==
--- NOTE | 2024-09-20 08:00 | CT_ITS ---
WS: [id number] CTA HEAD AND NECK TECHNIQUE: Contrast enhanced CTA of the head and neck with coronal and sagittal reformatted images an d maximum intensity projection (MIP) images. NASCET criteria utilized. CLINICAL INFORMATION: F33.0 - Major depressive disorder, recurrent, mild COMPARISON: MRI head 12/07/2023. DLP: 1158.[address] scans at [facility] use at least one of these dose optimization techniques: automated e xposure control; mA and/or kV adjustment per patient size (includes targeted exams where dose is matc hed to clinical indication); or iterative reconstruction. FINDINGS: No evidence intracranial hemorrhage or mass effect. Ventricular system and basal cisterns a re patent. Mild small vessel changes. Moderate parenchymal volume loss. Mild prominence of the ventri cular system is unchanged since the outside MRI. No transependymal edema. Mastoid air cells are well aerated. Air-fluid level in the sphenoid sinus compatible with sphenoid si nusitis. RIGHT: RIGHT common carotid artery is patent. No significant RIGHT ICA stenosis. RIGHT ICA is patent to the skull base. LEFT: LEFT common carotid artery is patent. Mild atheromatous plaque LEFT carotid bulb extending into the ICA with less than 50% stenosis. LEFT ICA is patent to the skull base. Both ICAs are patent at the skull base. Mild cavernous carotid calcification. Small LEFT A1 segment. Normal vascularity to the [place] territory. Normal vascularity to the MCA territories bilaterally. No evidence of proximal flow-limiting stenosis or aneurysm. LEFT dominant vertebral artery. Smaller but patent RIGHT vertebral artery. Proximal basilar artery is patent. Anterior dominant circulation with persistent LEFT G[employer]AGE [employer]ER. Patent RIGHT posterior communi cating artery. Normal vascularity to the GARAGE [employer]ORER territory bilaterally. CT/CT angio headneck* [id number] IMPRESSION: 1. Less than 50% cervical ICA stenosis. Mild atheromatous plaque LEFT carotid bulb. 2. No flow-limiting intracranial stenosis. Anterior dominant circulation with persistent LEFT G[employer]AGE [employer]ER. 3. LEFT dominant vertebral artery. Smaller but patent RIGHT vertebral artery.
[2024-09-20] MEDS: iohexol 350 mg/mL 500 mL Btl (per mL) IV (08:21)
== END 2024-09-20 07:44 | disposition home or self-care (01) ==
LOC: RAD 07:44
PROVIDERS: PCP Family Medicine Adult Medicine; Visit Provider Specialist
DX: G31.89 Other specified degenerative diseases of nervous system (principal); F33.0 Major depressive disorder, recurrent, mild; F41.1 Generalized anxiety disorder; R42 Dizziness and giddiness
CPT/HCPCS: 70496; 70498

== ENCOUNTER → 2024-09-21 09:22 | Outpatient (BNVA) | payer MEDICARE, OTHER, SELFPAY | PROVIDERS: PCP Family Medicine Adult Medicine; Visit Provider Nurse Practitioner Family | DX: I25.119 Atherosclerotic heart disease of native coronary artery with unspecified angina pectoris (principal); I10 Essential (primary) hypertension; Z87.891 Personal history of nicotine dependence; G43.909 Migraine, unspecified, not intractable, without status migrainosus | CPT/HCPCS: 99214 ==

== ENCOUNTER 2024-09-24 09:26 | Outpatient (RCR) | payer MEDICARE, OTHER, SELFPAY | END 2024-10-13 23:59 | disposition home or self-care (01) | LOC: CR 09:26 | PROVIDERS: PCP Family Medicine Adult Medicine; Referring Provider Internal Medicine Cardiovascular Disease; Visit Provider Internal Medicine Cardiovascular Disease | DX: Z95.5 Presence of coronary angioplasty implant and graft (principal) | CPT/HCPCS: 93798 ==

== ENCOUNTER → 2024-11-06 08:45 | Outpatient (BNVA) | payer MEDICARE, OTHER, SELFPAY | PROVIDERS: PCP Family Medicine Adult Medicine; Visit Provider Specialist | DX: F33.0 Major depressive disorder, recurrent, mild (principal); F41.1 Generalized anxiety disorder; R42 Dizziness and giddiness; G43.711 Chronic migraine without aura, intractable, with status migrainosus; G31.84 Mild cognitive impairment of uncertain or unknown etiology; G93.89 Other specified disorders of brain; R29.90 Unspecified symptoms and signs involving the nervous system; I25.118 Atherosclerotic heart disease of native coronary artery with other forms of angina pectoris; E78.2 Mixed hyperlipidemia; R07.9 Chest pain, unspecified; I10 Essential (primary) hypertension; R00.1 Bradycardia, unspecified | CPT/HCPCS: 93005; 96116; 99214 ==